=== PATIENT | female | born 1945 | race Caucasian/White ===

== ENCOUNTER → 2016-07-29 | Outpatient (CLI) | payer OTHER, MEDICARE ==
--- NOTE | 2016-08-18 14:19 | CODING QUERY MEDICAL NECESSITY ---
SUPPORTING DIAGNOSIS NEEDED Dr. Palmer, A supporting diagnosis is required for the test/procedure performed on this patient in order for us to be reimbursed by the patient's insurance. Please provide a supporting diagnosis for the following test/procedure listed below next to the test name along with your signature. *If there is no additional diagnosis for this patient that would support the following test/procedure please document that below next to the test/procedure. Test(s)/Procedure(s) that require a supporting diagnosis: * DXA BONE DENSITY, AXIAL DIAGNOSIS: DATE OF SERVICE: 07/29/16 Provider Signature: Date: Thank you [facility] Information Management Once completed, please kindly fax back to [phone] For questions please call [phone]
== END | disposition home or self-care (01) ==
LOC: MERGE 15:00 → C.MAMM 15:00
PROVIDERS: ATTEND Nurse Practitioner Family
DX: Z13.820 Encounter for screening for osteoporosis (principal)

== ENCOUNTER → 2017-02-26 | Outpatient (CLI) | payer OTHER, MEDICARE ==
[~2017-02-26] MED LIST: FENO54TA PO; HYDR12.55 PO; IBUP-103 PO; LOSA50TA6 PO; OMEG10007 PO; VNTHFA/IN INH
[2017-02-26 18:13] LABS: PROTHROMBIN TIME (PATIENT) 10.2 SECONDS (9.0-12.0)
[2017-02-26 18:23] LABS: URINE APPEARANCE CLOUDY (CLEAR); URINE COLOR DK YELLOW; URINE EPITHELIAL CELL AUTO >30 /lpf (0-5); URINE NITRITE NEG (NEG); URINE SPECIFIC GRAVITY 1.028 (1.000-1.030); UROBILINOGEN NEG (NEG); ZZUR CULT IF INDIC CLEAN CATCH YES
[2017-02-26 18:34] LABS: MANUAL MICROSCOPIC REQUIRED? NO; REVIEW REQ? YES; URINE BILIRUBIN NEG (NEG)
[2017-02-26 18:36] LABS: URINE MUCUS PRESENT (NONE PRSENT)
== END | disposition home or self-care (01) ==
LOC: C.LABMFLN 11:51
PROVIDERS: ATTEND Physician Assistant Medical
DX: Z01.812 Encounter for preprocedural laboratory examination (principal); M17.12 Unilateral primary osteoarthritis, left knee

== ENCOUNTER → 2017-03-25 | Outpatient (CLI) | payer OTHER, MEDICARE ==
[~2017-03-25] MED LIST changes: +GLC/500 PO
== END | disposition home or self-care (01) ==
LOC: C.LABMFLN 11:32
PROVIDERS: ATTEND Orthopaedic Surgery
DX: Z01.818 Encounter for other preprocedural examination (principal)

== ENCOUNTER 2017-04-10 05:56 | Inpatient (IN) | payer OTHER, MEDICARE ==
[2017-02-25 13:13] VITALS: BMI 36.0
--- NOTE | 2017-02-25 13:37 | PAT Medication Instructions ---
Service Date Feb 25, 2017. Current Home Medication List Albuterol Hfa (Ventolin Hfa), 2 PUFFS INH Q4H PRN for RN Fenofibrate (Tricor), 54 MG PO QAM Fish Oil (Douglas-3), 1 CAP PO QAM Hydrochlorothiazide (Hydrochlorothiazide), 1 TAB PO QAM Ibuprofen Tab (Advil), 400 MG PO PRN Losartan Potassium (Cozaar), 50 MG PO QAM Medication Instructions For Your Scheduled Surgery - Hold the following medications 2 weeks prior to surgery: Fish Oil (Douglas-3), 1 CAP PO QAM - Hold the following medications the morning of surgery: Hydrochlorothiazide (Hydrochlorothiazide), 1 TAB PO QAM Losartan Potassium (Cozaar), 50 MG PO QAM Fenofibrate (Tricor), 54 MG PO QAM Ibuprofen Tab (Advil), 400 MG PO PRN (otherwise okay to continue per surgeon) - Take the following medications the morning of surgery: Albuterol Hfa (Ventolin Hfa), 2 PUFFS INH Q4H PRN (use if needed; BRING TO HOSPITAL) - Take the following medications as scheduled the night before surgery: Albuterol Hfa (Ventolin Hfa), 2 PUFFS INH Q4H PRN If you have any questions please call us at [phone] or [phone] or [phone]
--- NOTE | 2017-02-25 14:18 | DIAGNOSTIC IMAGING REPORT ---
CHEST 2 VIEWS ROUTINE CLINICAL HISTORY: Preoperative evaluation. COMPARISON STUDY: No previous studies for comparison. FINDINGS: Note is made of cholecystectomy clips. There is no pneumothorax or pleural effusion. Pulmonary vascularity is normal. Linear bilateral opacities suggest atelectasis or scarring. There is mild cardiomegaly without evidence of pulmonary edema. IMPRESSION: 1. No acute cardiopulmonary findings. 2. Mild cardiomegaly. Electronically signed by: Zeus Simons M.D. 02/25/2017 2:16 PM Dictated Date/Time: 02/25/2017 2:15 PM
[2017-02-25 14:57] LABS: BASO % 0.4 %; BASO ABS # 0.04 K/uL (0-0.2); EOS % 1.4 %; EOS ABS # 0.16 K/uL (0-0.5); HEMOGLOBIN 15.3 g/dL (12.0-16.0); IG# 0.05 K/uL (0.00-0.02); LYMPH % 20.4 %; MEAN CELL VOLUME 96.8 fL (80-100); MEAN CORPUSCULAR HEMOGLOBIN 32.2 pg (25-34); MEAN CORPUSCULAR HGB CONC 33.3 g/dl (32-36); MEAN PLATELET VOLUME 11.8 fL (7.4-10.4); MONO % 7.2 %; MONO ABS # 0.81 K/uL (0.11-0.59); NEUT % 70.2 %; NEUT ABS # 7.89 K/uL (1.4-6.5); PLATELET COUNT 228 K/uL (130-400); RED CELL DISTRIBUTION WIDTH CV 13.5 % (11.5-14.5); RED CELL DISTRIBUTION WIDTH SD 47.8 fL (36.4-46.3); WHITE BLOOD COUNT 11.25 K/uL (4.8-10.8)
[2017-02-25 15:51] LABS: ALBUMIN 3.9 gm/dl (3.4-5.0); CALCIUM 9.2 mg/dl (8.5-10.1); CREATININE 0.7 mg/dl (0.60-1.20); POTASSIUM 3.8 mmol/L (3.5-5.1)
[2017-02-26 06:36] LABS: HEMOGLOBIN A1C 6.8 % (4.5-5.6)
--- NOTE | 2017-04-06 08:54 | History and Physical ---
History & Physical Date Apr 06, 2017. Chief Complaint Left knee pain History of Present Illness The patient is a 71 year old female with complaints of left knee pain for several years. She has tried conservative therapies with minimal relief. She would like to proceed with a Left total knee arthroplasty. Past Medical/Surgical History PMHx: hypertension, hypercholesterolemia, anxiety, shortness of breath, osteoarthritis , history of kidney stones PSHx: Cholecystectomy, breast reduction Additional History Hepatic Disease: No Endocrine Disorder: No Kidney Disease: No Hypertension: No Heart Disease: Yes Bleeding Tendencies: No Infectious Diseases: No Allergies Coded Allergies: Penicillins (Verified Allergy, Unknown, HIVES, 02/25/17) Home Medications Scheduled Fenofibrate (Tricor), 54 MG PO QAM Fish Oil (Ferndale-3), 1 CAP PO QAM Hydrochlorothiazide (Hydrochlorothiazide), 1 TAB PO QAM Ibuprofen Tab (Advil), 400 MG PO PRN Losartan Potassium (Cozaar), 50 MG PO QAM Metformin Hcl (Glucophage), 500 MG PO HS Scheduled PRN Albuterol Hfa (Ventolin Hfa), 2 PUFFS INH Q4H PRN for RN Physical Examination Skin: warm/dry, no rash Eyes: normal inspection, EOMI ENT: normal ENT inspection Head: normocephalic, atraumatic Neck: supple, no adenopathy Respiratory/Chest: lungs clear, normal breath sounds Cardiovascular: regular rate, rhythm, no murmur Abdomen / GI: normal bowel sounds, non tender Extremities: normal inspection, + pertinent finding (Medial joint line tenderness, ligaments are intact.) Neurologic/Psych: no motor/sensory deficits, alert, oriented x 3 Diagnosis Primary osteoarthritis of left knee Plan of Treatment Patient is scheduled for a left total knee arthroplasty. She has failed conservative therapy and would like to proceed with scheduled procedure. Risks and benefits to surgery were discussed with the patient. The patient understands the risks and would like to proceed. All questions were answered to their satisfaction.
[2017-04-10] VITALS (8 sets, daily range): BP systolic 129–175; BP diastolic 76–93; PULSE 70–90; TEMP 36.5–36.9; O2SAT 94–97; Ht 167.6 cm; Wt 102.6 kg
[~2017-04-10] VITALS: Ht 167.6 cm; Wt 102.6 kg
[~2017-04-10 05:56] MED LIST changes: +[UNRECOGNIZED DRUG - REMARK] SCH
[2017-04-10] MEDS ORDERED: CLINDAMYCIN 600 MG/54 ML D5W 54 ML IV SCH (06:00)
[2017-04-10] MEDS ORDERED: GABAPENTIN 300 MG CAP PO SCH ×2 (06:00)
[2017-04-10] MEDS ORDERED: ROPIVACAINE 5MG/ML 30 ML 150 MG, BUPIVACAINE 0.5% MPF INJ 30 ML, EpINEphrine HCL INJ 0.... INFIL SCH ×8 (06:00)
[2017-04-10] MEDS ORDERED: CLINDAMYCIN 600 MG/54 ML D5W IV SCH (06:00)
[2017-04-10] MEDS ORDERED: DEXAMETHASONE 4 MG TAB PO SCH ×2 (06:00)
[2017-04-10] MEDS ORDERED: LACTATED RINGER'S 1000ML IV SCH (06:00)
[2017-04-10] MEDS ORDERED: CeleBREX 200 MG CAP PO SCH ×2 (06:00)
[2017-04-10] MEDS ORDERED: METOCLOPRAMIDE HCL 10 MG TAB PO SCH ×2 (06:00)
[2017-04-10] MEDS ORDERED: ACETAMINOPHEN 500 MG TAB PO SCH ×3 (06:00→14:00)
[2017-04-10] MEDS ORDERED: FAMOTIDINE 20 MG TAB PO SCH ×2 (06:00)
[2017-04-10] MEDS ORDERED: LACTATED RINGER'S 1000ML 500 ML IV SCH (06:00)
[2017-04-10] MEDS ORDERED: TRANEXAMIC ACID INJ 1,000 MG in SYRINGE 0 ML IV SCH (06:00)
[2017-04-10] MEDS ORDERED: OXYCODONE HCL 10 MG TABCR (OXYCONTIN) PO SCH ×2 (06:00)
[2017-04-10] MEDS ORDERED: LACTATED RINGER'S 1000ML 1,000 ML IV SCH (06:00)
[2017-04-10] MEDS: TRANEXAMIC ACID INJ 1,000 MG in SYRINGE 0 ML IV SCH ×2 (06:30→08:55)
[2017-04-10] MEDS ORDERED: ROPIVACAINE 0.5% 5 MG/ML 30 ML VIAL ONE (06:33)
[2017-04-10] MEDS ORDERED: BUPIVACAINE 0.5 % 5 MG/1 ML PF 10ML VIAL ONE (06:33)
[2017-04-10] MEDS ORDERED: MIDAZOLAM HCL 1 MG/ML 2ML VIAL ONE ×2 (07:22→07:23)
[2017-04-10] MEDS ORDERED: FENTANYL CITRATE INJ 50 MCG/1 ML 2 ML VIAL ONE (07:22)
[2017-04-10] MEDS ORDERED: PROPOFOL IV EMULSION 10 MG/ML 20 ML VIAL IV ONE (07:23)
[2017-04-10] MEDS ORDERED: BACITRACIN 50000 UNIT VIAL ONE (09:23)
[2017-04-10] MEDS ORDERED: POVIDONE-IODINE OP SOLN 30 ML BTL ONE (09:23)
--- NOTE | 2017-04-10 09:23 | History & Physical Bridge Note ---
H&P Re-Evaluation Bridge Note: I have examined the patient, reviewed the History & Physical and in the interval since the performance of the History & Physical I have noted the following changes of clinical significance: No changes noted
[2017-04-10] MEDS ORDERED: PHENYLEPHRINE 100MCG/ML 5ML SYR IV PRN (09:30)
[2017-04-10] MEDS ORDERED: ONDANSETRON INJ 2 MG/ML 2 ML VIAL IV PRN ×2 (09:30→11:45)
[2017-04-10] MEDS ORDERED: ATROPINE SULFATE 0.1 MG/ML 5ML SYR IV PRN (09:30)
[2017-04-10] MEDS ORDERED: EpHEDrine SULFATE INJ 50 MG/ML AMP IV PRN (09:30)
[2017-04-10] MEDS ORDERED: HYDROmorphone INJ 1 MG/ML SYR IV PRN (09:30)
[2017-04-10] MEDS ORDERED: ROPIVACAINE 5MG/ML 30 ML 150 MG, BUPIVACAINE 0.5% MPF INJ 30 ML, EpINEphrine HCL INJ 0.... INFIL STA ×8 (09:41)
[2017-04-10] MEDS ORDERED: VANCOMYCIN INJ 1,000 MG in SODIUM CHLORIDE 0.9% 250ML 250 ML IV ONE (10:15)
[2017-04-10] MEDS ORDERED: NURSING VERBAL MED ORDER ONE ×3 (10:15→21:45)
--- NOTE | 2017-04-10 11:15 | [facility] Operative Report ---
Operative Report Operative Date Apr 10, 2017. Pre-Operative Diagnosis Primary Osteoarthritis Left Knee Post-Operative Diagnosis Primary Osteoarthritis Left Knee Procedure(s) Performed Left Total Knee Arthroplasty Surgeon Dr. Macedo Sand Filler Surgeon(s) TEJINDER Oneil Estimated Blood Loss 20 ml Findings As above Specimens A. Left Knee Bone and Tissue Drains 2 Hemovac Anesthesia spinal and adductor canal block Complication(s) None Disposition Recovery Room / PACU Indications The patient is a 71-year-old female long-standing osteoarthritis the left knee. She has failed conservative measures including injection anti-inflammatories and rehabilitation. She is [id number] particularly medial compartment was significant osteophyte formation all 3 compartments. She wishes to proceed with total knee arthroplasty Description of Procedure Risks benefits and alternatives of surgery including but not limited to infection, DVT, pain, stiffness, need for surgery, damage to blood vessels, damage to nerves or risks of anesthesia were discussed with the patient and they wished to proceed. The patient was identified and the laterality was confirmed and marked. They received a preoperative antibiotic as well as a spinal anesthetic and an abductor canal block. A well-padded tourniquet was applied and then the limb was prepped and draped in standard manner with ChloraPrep. The limb was exsanguinated and the tourniquet was inflated. I made a standard anterior incision. I sharply incised the skin then utilized Bovie electrocautery as well as the aqua mantis to achieve hemostasis. I made a medial parapatellar arthrotomy and mobilized the patella laterally. I then excised the anterior horns of the medial and lateral meniscus as well as the infrapatellar fat pad. I elevated a portion of the MCL off of the tibia. I then pinned into place a patient-matched distal femoral cutting guide and made my distal femoral resection. I then pinned into place the 5 in 1 femoral cutting guide. I made my anterior, posterior and chamfer cuts. I then excised the cruciates and the remaining portions of the menisci. I then pinned into place a patient- matched tibial cutting guide and made my tibial resection. I then pinned into place the tibial plate a utilizing alignment yvonne to confirm rotation. I then cut for the post. Utilizing a lamina electrician radio and I then removed posterior osteophytes off the femur. I then placed a trial femur into position and cut for the trochlear component. I then sequentially trialed to size the polyethylene until there was good soft tissue balancing and range of motion. I then prepared the patella with a freehand cut utilizing sagittal saw. I sized and drilled for the patella. There was good tracking to the patella no lateral release was needed. All the trial components were removed. The deep tissues were anesthetized with an ortho mix solution. Then with Simplex HV with gentamicin cement, I cemented my definitive components. Definitive components, Zamora and Nephew Journey 2: Femur 6 Tibia 4 Poly 9 Patella 35 oval A betadine soak was performed. A deep drain was placed. The arthrotomy was closed with interrupted #1 Vicryl suture subcutaneous tissue was closed with interrupted 2-0 Vicryl suture. The skin was closed with with jamey. A Silverlon was placed. Sterile dressings were applied. All needle and sponge counts were correct at the end of the procedure patient was transferred to the PACU in stable condition without apparent complication. The PA-C was necessary for assistance with procedure for assistance in positioning, prepping, draping, retraction and closure. I attest to the content of the Intraoperative Record and any orders documented therein. Any exceptions are noted below.
[2017-04-10] MEDS ORDERED: ALUMINUM/MAGNESIUM/SIMETH (MAALOX MAX) 30 ML UDC PO PRN (11:45)
[2017-04-10] MEDS ORDERED: BISACODYL 10 MG SUPP PR PRN (11:45)
[2017-04-10] MEDS ORDERED: VANCOMYCIN CONSULT ACTIVE PRN (11:45)
[2017-04-10] MEDS ORDERED: ALBUTEROL HFA 8 GM INHALER INH PRN (11:45)
[2017-04-10] MEDS ORDERED: MoRPHine SULFATE 2 MG/ML CARP IV PRN (11:45)
[2017-04-10] MEDS ORDERED: SOD PHOSPHATE/SOD BIPHOSPHATE ENEMA 132 ML BTL PR PRN (11:45)
[2017-04-10] MEDS ORDERED: ZOLPIDEM TARTRATE 5 MG TAB PO PRN (11:45)
[2017-04-10] MEDS ORDERED: OXYCODONE HCL IR 5 MG TAB (IMMEDIATE RELEASE) PO PRN (11:45)
[2017-04-10] MEDS ORDERED: MAGNESIUM HYDROXIDE SUSP 30 ML UDC PO PRN (11:45)
--- NOTE | 2017-04-10 12:37 | Anesthesiology Progress Note ---
Anesthesia Post Op Note Date & Time Apr 10, 2017 at 12:37 Vital Signs Pain Intensity: 0 Vital Signs Past 12 Hours Date Time Temp Pulse Resp B/P (MAP) Pulse Ox O2 Delivery O2 Flow Rate FiO2 04/10/17 12:22 37.3 82 16 144/82 96 Nasal Cannula 2 04/10/17 12:11 147/82 04/10/17 12:07 83 12 04/10/17 12:07 83 12 96 04/10/17 12:06 144/81 04/10/17 12:02 77 14 99 04/10/17 12:02 77 14 04/10/17 12:01 136/80 04/10/17 12:00 80 10 99 04/10/17 12:00 81 10 04/10/17 11:56 142/81 04/10/17 11:55 82 9 100 04/10/17 11:55 82 9 04/10/17 11:51 145/79 04/10/17 11:50 88 19 04/10/17 11:50 88 19 100 04/10/17 11:46 126/80 04/10/17 11:45 91 9 100 04/10/17 11:45 89 9 04/10/17 11:41 127/75 04/10/17 11:40 37.3 94 18 127/75 (100) 99 Oxymask 10 04/10/17 06:24 36.9 90 18 175/93 96 Room Air Notes Mental Status: alert / awake / arousable, participated in evaluation Pt Amnestic to Procedure: Yes Nausea / Vomiting: adequately controlled Pain: adequately controlled Airway Patency, RR, SpO2: stable & adequate BP & HR: stable & adequate Hydration State: stable & adequate Anesthetic Complications: no major complications apparent
--- NOTE | 2017-04-10 12:44 | DIAGNOSTIC IMAGING REPORT ---
TWO VIEWS LEFT KNEE CLINICAL HISTORY: Postoperative examination. FINDINGS: AP and crosstable lateral portable views of the left knee are obtained. A left knee arthroplasty is in near anatomic alignment. There has been undersurface remodeling of the patella. No acute fracture is seen. There are expected postoperative changes around the knee including skin clips, a surgical drain, soft tissue edema, and subcutaneous gas. IMPRESSION: Expected postoperative changes status post left knee arthroplasty. No acute fracture is seen. Electronically signed by: Mg Leigh M.D. 04/10/2017 12:42 PM Dictated Date/Time: 04/10/2017 12:42 PM
[2017-04-10] MEDS: TRICOR~ORDER AWAITING ACTION SCH ×2 (15:57→23:38)
[2017-04-10] MEDS: FERROUS GLUCONATE 324 MG TAB PO SCH (17:52)
[2017-04-10] MEDS: SODIUM CHLORIDE 0.9% 1000ML 1,000 ML IV SCH (18:28)
[2017-04-10] MEDS: SENNA 8.6 MG TAB PO SCH (21:00)
[2017-04-10] MEDS: ASPIRIN 81 MG ECTAB PO SCH (21:07)
[2017-04-10] MEDS: CeleBREX 200 MG CAP PO SCH (21:07)
[2017-04-10] MEDS: DOCUSATE SODIUM 100 MG CAP PO SCH (21:08)
[2017-04-10] MEDS ORDERED: VANCOMYCIN INJ 1,500 MG in SODIUM CHLORIDE 0.9% 500ML 500 ML IV ONE (22:00)
[2017-04-10] MEDS ORDERED: VANCOMYCIN INJ 1,000 MG in SODIUM CHLORIDE 0.9% 250ML 250 ML IV SCH (22:00)
[2017-04-10] MEDS: ACETAMINOPHEN 500 MG TAB PO SCH (23:38)
[2017-04-11 03:30] VITALS: BP 112/63; PULSE 72; TEMP 36.6; O2SAT 97
[2017-04-11] MEDS: SODIUM CHLORIDE 0.9% 1000ML 1,000 ML IV SCH (05:36)
[2017-04-11 06:11] LABS: HEMATOCRIT 34.7 % (37-47); HEMOGLOBIN 11.6 g/dL (12.0-16.0); MEAN CELL VOLUME 94.8 fL (80-100); MEAN CORPUSCULAR HEMOGLOBIN 31.7 pg (25-34); MEAN CORPUSCULAR HGB CONC 33.4 g/dl (32-36); MEAN PLATELET VOLUME 12.2 fL (7.4-10.4); PLATELET COUNT 170 K/uL (130-400); RED CELL DISTRIBUTION WIDTH SD 45.1 fL (36.4-46.3); WHITE BLOOD COUNT 14.07 K/uL (4.8-10.8)
[2017-04-11 06:20] LABS: INR 1.1 (0.9-1.1)
[2017-04-11 06:51] LABS: CREATININE 0.88 mg/dl (0.60-1.20); POTASSIUM 4.2 mmol/L (3.5-5.1)
[2017-04-11] MEDS: ACETAMINOPHEN 500 MG TAB PO SCH ×3 (07:33→23:45)
[2017-04-11] MEDS: TRICOR~ORDER AWAITING ACTION SCH ×3 (07:33→23:45)
[2017-04-11 08:14] VITALS: BP 127/72; PULSE 64; TEMP 36.6; O2SAT 98
[2017-04-11] MEDS: CeleBREX 200 MG CAP PO SCH ×2 (08:29→21:18)
[2017-04-11] MEDS: DOCUSATE SODIUM 100 MG CAP PO SCH ×2 (08:29→21:18)
[2017-04-11] MEDS: FERROUS GLUCONATE 324 MG TAB PO SCH ×3 (08:29→18:22)
[2017-04-11] MEDS: ASPIRIN 81 MG ECTAB PO SCH ×2 (08:29→21:18)
[2017-04-11] MEDS: LOSARTAN POTASSIUM 50 MG TAB PO SCH (08:29)
[2017-04-11] MEDS: HYDROCHLOROTHIAZIDE 25 MG TAB PO SCH (08:29)
[2017-04-11] MEDS: MULTIVITAMIN TAB PO SCH (08:29)
--- NOTE | 2017-04-11 09:38 | Orthopedic Progress Note ---
Orthopedic Progress Note Date of Service Apr 11, 2017. Subjective Post OP Day: 1 Reports: feeling well, pain controlled w PO medications, Denies: chest pain, SOB , nausea / vomiting, light headedness, calf pain Objective calves soft nontender, N/V intact, capillary refill less than 2 sec., dressing C /D/I, A&O x3, toes mobile, hemovac drainage Date Time Temp Pulse Resp B/P (MAP) Pulse Ox O2 Delivery O2 Flow Rate FiO2 04/11/17 08:14 36.6 64 17 127/72 (90) 98 Room Air 04/11/17 07:30 Room Air 04/11/17 03:30 36.6 72 18 112/63 (79) 97 Room Air 04/10/17 23:45 Room Air 04/10/17 23:40 36.5 72 18 134/76 (95) 95 Room Air 04/10/17 21:25 36.5 70 16 132/77 (95) 97 Nasal Cannula 2.0 04/10/17 16:36 36.7 76 16 129/76 (93) 94 Nasal Cannula 2.0 04/10/17 15:45 Nasal Cannula 2.0 04/10/17 15:00 36.6 77 17 137/76 (96) 96 Nasal Cannula 2.0 04/10/17 14:05 82 16 138/83 (101) 96 Nasal Cannula 2.0 04/10/17 13:30 36.5 75 16 134/76 (95) 96 Nasal Cannula 2.0 04/10/17 13:00 Nasal Cannula 2.0 04/10/17 13:00 36.7 82 16 142/77 (98) 96 Nasal Cannula 2.0 04/10/17 12:37 36.7 83 16 141/77 (106) 96 Nasal Cannula 2 04/10/17 12:22 37.3 82 16 144/82 96 Nasal Cannula 2 04/10/17 12:11 147/82 04/10/17 12:07 83 12 04/10/17 12:07 83 12 96 04/10/17 12:06 144/81 04/10/17 12:02 77 14 99 04/10/17 12:02 77 14 04/10/17 12:01 136/80 04/10/17 12:00 80 10 99 1/26/18 12:00 81 10 04/10/17 11:56 142/81 04/10/17 11:55 82 9 100 04/10/17 11:55 82 9 04/10/17 11:51 145/79 04/10/17 11:50 88 19 04/10/17 11:50 88 19 100 04/10/17 11:46 126/80 04/10/17 11:45 91 9 100 04/10/17 11:45 89 9 04/10/17 11:41 127/75 04/10/17 11:40 37.3 94 18 127/75 (100) 99 Oxymask 10 Laboratory Results 24 Hours: Test 04/11/17 05:28 Hematocrit 34.7 % Hemoglobin 11.6 g/dL Prothromb Time International Ratio 1.1 Prothrombin Time 11.4 SECONDS Assessment & Plan Assessment: s/p Left TKA POD #1 Plan: Plan for HH on thursday if pain controlled and doing well Inhouse Planning Pain Management: PO Tylenol, Oxy IR DVT Prophylaxis: TEDs, SCDs, ASA Discharge Planning Discharge Planning: home with home health Pain Management: PO Tylenol, Oxy IR DVT Prophylaxis: TEDs, ASA Therapy: Physical Therapy
[2017-04-11 11:00] VITALS: BP 104/63; PULSE 71; TEMP 36.5; O2SAT 97
[2017-04-11 15:39] VITALS: BP 119/74; PULSE 72; TEMP 36.6; O2SAT 96
[2017-04-11] MEDS ORDERED: METFORMIN HCL 500 MG TAB PO SCH (17:45)
--- NOTE | 2017-04-11 18:23 | Discharge Instructions ---
Discharge Instructions Date of Service Apr 11, 2017. Admission Reason for Admission: Left Knee Osteoarthritis Discharge Discharge Diagnosis / Problem: left TKA Discharge Goals Goal(s): Decrease discomfort, Improve function, Increase independence, Therapeutic intervention Activity Recommendations Activity Limitations: per Instructions/Follow-up section . Instructions / Follow-Up Instructions / Follow-Up ACTIVITY RECOMMENDATIONS: SELF CARE INSTRUCTIONS AFTER TOTAL KNEE REPLACEMENT A. You may need to continue a physical therapy program after discharge from the hospital. There are several options available to you. Your doctor will assist you in selecting the best one for you. 1. An out-patient facility 2 to 3 times a week for therapy or home therapy. 2. Continue working on all exercises taught to you in the hospital. Your goals should be to increase bending of your knee to 90 degrees and beyond and to fully straighten your knee. B. You may progress at your own pace from walking with a walker or crutches to a cane; then to no assistive devices. C. Make walking a part of your daily routine. Be up as much as comfortable with rest periods throughout the day. Rest with leg elevation is very important. Use the ice wrap frequently for the first 3-4 weeks. D. There are no restrictions on activities. You may ride in a car, shop, participate in value analysis coordinator and all social activities. E. Wear the long elastic stockings (NIGHAT hose) 20 hours a day for 2 weeks after surgery. They can be removed several times a day for laundering and for a bath. F. You may shower, no tub baths until cleared by your doctor. SPECIAL CARE INSTRUCTIONS: VERY IMPORTANT TO READ AND REVIEW A. There are a few signs you need to watch for after you are home. Call [facility] if you notice any of the followin. Increased severe knee pain. Some pain is expected especially when you exercise. 2. Increased swelling in your leg or knee; pain or swelling of the calf muscle in either lower leg. 3. Any fluid drainage from the incision. 4. Shortness of breath or chest pain. B. Please call [facility] at if you have any concerns or questions about your operation or recovery. The doctor or his nurse will return your call promptly. C. You must take antibiotics before dental work, bladder, bowel or other surgery. Your doctor will provide you with a permanent care to carry describing this precaution. IMPORTANT: * REMEMBER TO TAKE ASPIRIN, 81 MG, TWICE DAILY FOR 4 WEEKS UNLESS OTHERWISE DIRECTED. THIS IS YOUR BLOOD THINNER. * HIGH RISK PATIENTS MAY BE PRESCRIBED A STRONGER BLOOD THINNER. THIS WILL BE PROVIDED AT DISCHARGE. * CALL IF INCREASED PAIN, REDNESS, DRAINAGE OR FEVER GREATER THAT 101. * WEAR NIGHAT HOSE 20 HOURS PER DAY FOR 2 WEEKS. * YOU MAY HAVE A LARGE BAND-AID LIKE DRESSING (SILVERON). THIS WILL REMAIN ON YOUR INCISION FOR 7 DAYS, THEN CAN BE REMOVED. IF INCISION IS LEAKING THROUGH DRESSING, CALL THE OFFICE . FOLLOW UP VISIT: If appointment is not already scheduled: Please call [facility] to make a follow-up appointment for 2 weeks after your surgery at . Current Hospital Diet Patient's current hospital diet: Regular Diet Discharge Diet Recommended Diet: Regular Diet Procedures Procedures Performed: Left Total Knee Arthroplasty Pending Studies Studies pending at discharge: no Laboratory Results Hemoglobin A1c Test 02/25/17 13:44 Range/Units Estimated Average Glucose 148 mg/dl Hemoglobin A1c 6.8 H 4.5-5.6 % Medical Emergencies . Who to Call and When: Medical Emergencies: If at any time you feel your situation is an emergency, please call [phone] immediately. . Non-Emergent Contact Non-Emergency issues call your: Primary Care Provider . "Provider Documentation" section prepared by Kristina Wolf. . VTE Core Measure Inpt VTE Proph given/why not?: Other Anticoagulation (ASA), T.E.D. Stockings, SCD's [place] Drug Monitoring Program Search Results: patient reviewed within database
[2017-04-11] MEDS: SENNA 8.6 MG TAB PO SCH (21:18)
[2017-04-11 23:18] VITALS: BP 145/78; PULSE 76; TEMP 36.6; O2SAT 96
[2017-04-12 06:00] VITALS: BP 156/88; PULSE 77; TEMP 36.3; O2SAT 97
[2017-04-12] MEDS: ASPIRIN 81 MG ECTAB PO SCH (07:39)
[2017-04-12] MEDS: MULTIVITAMIN TAB PO SCH (07:40)
[2017-04-12] MEDS: DOCUSATE SODIUM 100 MG CAP PO SCH (07:40)
[2017-04-12] MEDS: FERROUS GLUCONATE 324 MG TAB PO SCH (07:40)
[2017-04-12] MEDS: ACETAMINOPHEN 500 MG TAB PO SCH (07:41)
[2017-04-12] MEDS: LOSARTAN POTASSIUM 50 MG TAB PO SCH (07:41)
[2017-04-12] MEDS: HYDROCHLOROTHIAZIDE 25 MG TAB PO SCH (07:41)
[2017-04-12] MEDS: CeleBREX 200 MG CAP PO SCH (07:42)
[2017-04-12] MEDS: TRICOR~ORDER AWAITING ACTION SCH (07:42)
--- NOTE | 2017-04-12 08:25 | Orthopedic Progress Note ---
Orthopedic Progress Note Date of Service Apr 12, 2017. Subjective Post OP Day: 2 Reports: feeling well, pain controlled w PO medications, Denies: chest pain, SOB , nausea / vomiting, light headedness, calf pain Objective calves soft nontender, N/V intact, capillary refill less than 2 sec., dressing C /D/I, A&O x3, toes mobile Date Time Temp Pulse Resp B/P (MAP) Pulse Ox O2 Delivery O2 Flow Rate FiO2 04/12/17 06:00 36.3 77 16 156/88 (110) 97 Room Air 04/11/17 23:50 Room Air 04/11/17 23:18 36.6 76 18 145/78 (100) 96 Room Air 04/11/17 15:39 36.6 72 16 119/74 (89) 96 Room Air 04/11/17 15:30 Room Air 04/11/17 11:00 36.5 71 17 104/63 (77) 97 Room Air Assessment & Plan Assessment: s/p Left TKA POD #2 Plan: Plan for discharge today with HH Inhouse Planning Pain Management: PO Tylenol, Oxy IR DVT Prophylaxis: NIGHATs, SCDs, ASA Discharge Planning Discharge Planning: home with home health Pain Management: PO Tylenol, Oxy IR DVT Prophylaxis: TEDs, ASA Therapy: Physical Therapy
[2017-04-12] MEDS ORDERED: RXC5 PO (08:28)
[2017-04-12] MEDS ORDERED: FRRG PO (08:28)
[2017-04-12] MEDS ORDERED: ONDA8TAB6 PO (08:28)
[2017-04-12] MEDS ORDERED: ACET-24 PO (08:28)
[2017-04-12] MEDS ORDERED: CLB200 PO (08:28)
[2017-04-12] MEDS ORDERED: ASPEC81 PO (08:28)
[2017-04-12 08:58] VITALS: BP 156/88; PULSE 77; TEMP 36.3; O2SAT 97
--- NOTE | 2017-04-14 13:15 | Discharge Summary ---
Orthopedic Discharge Summary Admission Date/Reason Apr 10, 2017 at 08:48 Left Knee Osteoarthritis. Discharge Date/Disposition Apr 12, 2017 Home with services Diagnosis Principal Diagnosis: S/P Left total knee arthroplasty Medication Reconciliation as per discharge instructions Admission Physical Exam As per Admitting History & Physical. Hospital Course POD#1 patient was feeling well. Pain was well controlled with PO medications. She would like to go home with home health and this was to be arranged for Thursday. Her dressing was clean dry and intact. POD#2 patient was feeling well. Dressing was clean, dry and intact. She was to be discharged later after morning PT home with home health. Discharge Instructions Please refer to the electronic Patient Visit Report (Discharge Instructions) for additional information.
== END 2017-04-12 11:40 | disposition home health service (06) | DRG 470 ==
LOC: C.ACU 05:56 → UNDOADMIN 08:48 → C.3E 08:48 → ENRESERV 12:30
PROVIDERS: ADMIT Orthopaedic Surgery; ATTEND Orthopaedic Surgery
PROC: 0SRD0J9 Replacement of Left Knee Joint with Synthetic Substitute, Cemented, Open Approach (ICD-10-PCS; principal; 2017-04-10 09:00)
DX: M17.12 Unilateral primary osteoarthritis, left knee (principal); I10 Essential (primary) hypertension; E78.00 Pure hypercholesterolemia, unspecified; F41.9 Anxiety disorder, unspecified; Z87.442 Personal history of urinary calculi; Z90.49 Acquired absence of other specified parts of digestive tract; Z88.0 Allergy status to penicillin

== ENCOUNTER 2021-07-01 05:12 | Observation (INO) ==
--- NOTE | 2021-06-13 09:41 | PAT Medication Instructions ---
Medication Instructions Date of Service June 13, 2021 Home Medications acetaminophen 325 mg tablet (Tylenol) 325 mg PO QID PRN diphenhydramine HCl 25 mg capsule (Benadryl) 25 mg PO Q6H PRN fenofibrate 54 mg tablet 54 mg PO QAM gabapentin 100 mg tablet 100 mg PO QAM gabapentin 100 mg tablet 300 mg PO HS hydrochlorothiazide 50 mg tablet 50 mg PO QAM losartan 50 mg tablet 50 mg PO QAM albuterol sulfate 90 mcg/actuation aerosol inhaler 1 inh INHALATION Q4H PRN cyanocobalamin (vitamin B-12) 100 mcg tablet (Vitamin B-12) 100 mcg PO QAM empagliflozin 10 mg tablet (Jardiance) 10 mg PO QAM gabapentin 100 mg tablet 100 mg PO QPM lorazepam 0.5 mg tablet 0.5 mg PO DAILY PRN metformin 1,000 mg tablet 1,000 mg PO BID STOP taking 48 hours before surgery fenofibrate 54 mg tablet 54 mg PO QAM DO NOT take the morning of surgery diphenhydramine HCl 25 mg capsule (Benadryl) 25 mg PO Q6H PRN hydrochlorothiazide 50 mg tablet 50 mg PO QAM losartan 50 mg tablet 50 mg PO QAM cyanocobalamin (vitamin B-12) 100 mcg tablet (Vitamin B-12) 100 mcg PO QAM empagliflozin 10 mg tablet (Jardiance) 10 mg PO QAM metformin 1,000 mg tablet 1,000 mg PO BID Take morning of surgery With a small sip of water, OTHERWISE NOTHING TO EAT OR DRINK AFTER MIDNIGHT: acetaminophen 325 mg tablet (Tylenol) 325 mg PO QID PRN (okay to take up to 4 hours prior to surgery if needed) gabapentin 100 mg tablet 100 mg PO QAM albuterol sulfate 90 mcg/actuation aerosol inhaler 1 inh INHALATION Q4H PRN (use if needed; please bring with you to hospital day of surgery if possible) lorazepam 0.5 mg tablet 0.5 mg PO DAILY PRN (if needed) Take evening before surgery acetaminophen 325 mg tablet (Tylenol) 325 mg PO QID PRN (if needed) diphenhydramine HCl 25 mg capsule (Benadryl) 25 mg PO Q6H PRN (if needed) gabapentin 100 mg tablet 300 mg PO HS albuterol sulfate 90 mcg/actuation aerosol inhaler 1 inh INHALATION Q4H PRN (if needed) gabapentin 100 mg tablet 100 mg PO QPM lorazepam 0.5 mg tablet 0.5 mg PO DAILY PRN (if needed) metformin 1,000 mg tablet 1,000 mg PO BID Other Notes If you have any questions please call us at [phone] or [phone] or [phone] or [phone]
--- NOTE | 2021-06-14 14:27 | Anesthesiology Consultation ---
Date of Service June 14, 2021 Assessment & Plan (1) Encounter for pre-operative examination: - Unable to void at [facility]: Awaiting preop UA (taking to [facility] per [facility] tech). Patient otherwise acceptable risk for surgery. - COVID screening: Per assessment on 06/12: No known COVID-19 positive contacts or current COVID-19 related symptoms. Travel screen negative. Surgeon arranging preop COVID testing. Awaiting results. - S/P Left TKA (04/10/17): SAB at L4-L5 + PNB at [facility]. No issues per anesthesia progress note. - PCP office visit (01/18/21): Patient seen by PCP for this visit prior to right TKA as she was originally scheduled to be done 02/2021. At visit, PCP states: "Her glucose closely prior to procedure to determine need for insulin at that time.. Per [facility] guidelines, patient may proceed with aforementioned surgery without additional preoperative testing.. Patient with slight increase in hemog lobin A1c from 8-8.6 in the past 3 months.. Will hold adjustments prior to surgery, the likely will need increase in medications." - Check BSG AM DOS Chart Review Chart Review: Patient seen in Pre Admission Testing Teaching & Discussion Pre-Anesthesia Teaching/Discussion Notes: Instructed NPO after midnight before surgery,except medications with 15 cc of water. Medication instructions provided according to the [facility] guidelines. History Surgery Operation Date: 07/01/21 12:15 Proposed Procedures p Right Total Knee Arthroplasty - Pradeep Wright MD Height/Weight Height: 5 ft 6 in Weight: 97.7 kg Allergies Allergy/AdvReac Type Severity Reaction Status Date / Time Penicillins Allergy Intermediate Hives Verified 06/12/21 16:12 Medications Home Medications Medication Instructions Recorded Confirmed Last Taken acetaminophen 325 mg tablet 325 mg PO QID PRN 01/16/21 06/12/21 Unknown (Tylenol) diphenhydramine HCl 25 mg capsule 25 mg PO Q6H PRN 01/16/21 06/12/21 Unknown (Benadryl) fenofibrate 54 mg tablet 54 mg PO QAM 01/16/21 06/12/21 Unknown gabapentin 100 mg tablet 100 mg PO QAM 01/16/21 06/12/21 Unknown gabapentin 100 mg tablet 300 mg PO HS 01/16/21 06/12/21 Unknown hydrochlorothiazide 50 mg tablet 50 mg PO QAM 01/16/21 06/12/21 Unknown losartan 50 mg tablet 50 mg PO QAM 01/16/21 06/12/21 Unknown albuterol sulfate 90 mcg/actuation 1 inh INHALATION Q4H PRN 06/12/21 06/12/21 Unknown aerosol inhaler cyanocobalamin (vitamin B-12) 100 100 mcg PO QAM 06/12/21 06/12/21 Unknown mcg tablet (Vitamin B-12) empagliflozin 10 mg tablet 10 mg PO QAM 06/12/21 06/12/21 Unknown (Jardiance) gabapentin 100 mg tablet 100 mg PO QPM 06/12/21 06/12/21 Unknown lorazepam 0.5 mg tablet 0.5 mg PO DAILY PRN 06/12/21 06/12/21 Unknown metformin 1,000 mg tablet 1,000 mg PO BID 06/12/21 06/12/21 Unknown Past Medical History Medical History DM type 2 (diabetes mellitus, type 2) NIDDM History of kidney stones HLD (hyperlipidemia) HTN (hypertension) Neuropathy Obesity Osteoarthritis Urinary incontinence Past Family History Family History Sister PONV (postoperative nausea and vomiting) Past Surgical History Surgical History History of bilateral breast reduction surgery History of cholecystectomy History of D&C History of left knee replacement Left TKA (04/10/17): SAB at L4-L5 + PNB at [facility]. No issues per anesthesia progress note. Past Anesthesia History No Hx of Anesthesia Complications and No Family Hx of Anesthesia Complications History of PONV No Hx of PONV and Hx of Motion Sickness Social History Smoking Status: Never smoker Do You Dip or Chew Tobacco: No Hx Alcohol Use: Yes alcohol intake frequency: a few times a month Hx Substance Use: No substance use type: does not use Review of Systems Patient denies chest pain, shortness of breath, dyspnea on exertion, fever, chills, cough, wheezing, palpitations. Physical Exam Vital Signs VITALS BP 126/79 P 93 TEMP 98.3 SP02 96%RA RESP 16 PHYSICAL Full cervical extension range of motion. Full TMJ range of motion. TMD 4 finger breaths Mallampati Score 3 Dentition: intact Lungs: clear throughout to auscultation Cardiac: regular rate and rhythm, no murmurs noted Spine: normal Carotid arteries: negative bruit Extremities: no edema Lab Results Anesthesia Preop Results Results Anesthesia Widget: WBC 5.20 K/uL (4.8-10.8) 06/14/21 Hgb 13.1 g/dL (12.0-16.0) 06/14/21 Hct 38.9 % (37-47) 06/14/21 Plt 171 K/uL (130-400) 06/14/21 Na 142 mmol/L (136-145) 06/14/21 K 3.8 mmol/L (3.5-5.1) 06/14/21 Cl 103 mmol/L (98-107) 06/14/21 CO2 29 mmol/L (21-32) 06/14/21 BUN 25 mg/dl (6-23) H 06/14/21 Creat 0.76 mg/dl (0.6-1.2) 06/14/21 Glucose Level 166 mg/dl (70-99(Fasting)) H 06/14/21 PT 11.3 Seconds (9.0-12.0) 06/14/21 PTT 29.6 Seconds (21.0-31.0) 06/14/21 INR 1.1 (0.9-1.1) 06/14/21 HA1c 6.7 % (4.5-5.6) H 06/14/21 Blood Type A Positive 06/14/21 Antibody Screen NEGATIVE 06/14/21 Testing Electrocardiogram Date: 01/18/21 Findings: + NSR @ (89) Chest X-Ray Date: 06/14/21 FINDINGS: No pneumothorax or pleural effusion is present. Mild cardiomegaly is unchanged. No evidence for pulmonary edema. Linear opacity within the anterior segment of the right upper lobe is unchanged and reflects scarring. Linear left basilar opacity is unchanged. This represents scarring or atelectasis. Appearance of the chest is unchanged. Mild compression deformity at the thoracolumbar junction is chronic. IMPRESSION: No acute cardiopulmonary findings. No change in appearance of the chest.
--- NOTE | 2021-06-30 20:04 | History & Physical Report ---
Date of Service June 30, 2021 Assessment & Plan (1) Primary osteoarthritis of right knee: Plan: Treatment options discussed with the patient. She has failed conservative measures and would like to proceed with surgical intervention. Risks, benefits and alternatives to surgery including but not limited to infection, DVT, pain, stiffness, need for revision surgery, damage to blood vessels, damage to nerves, PE, , were discussed with the patient and they wish to proceed. Plan on right total knee arthroplasty scheduled fro 07/01/21 at [facility] with Dr. Wright. Will plan on home health PT post op. Will plan on aspirin 81mg twice daily post op for DVT prophylaxis. All questions answered. She will follow up post op. History of Present Illness Chief Complaint: Right knee pain Primary Care Provider: DG Aviles 75 year old female with PMHx significant for HTN, high cholesterol, DM2 who presents with longstanding right knee pain. She has pain interfering with her daily activities. She has failed conservative measures including injections, anti-inflammatories, therapy. She has previous left knee replacement and has done well. She would like to proceed with knee replacement. Patient denies headaches, sweats, fevers, chills, double vision, blurred vision, cough, sore throat, dysphagia, chest pain, sob, wheezing, n/v/d/c, numbness, tingling, fatigue, urinary symptoms, mood disorders. ROS positive for right knee pain and stiffness. Allergies Allergy/AdvReac Type Severity Reaction Status Date / Time Penicillins Allergy Intermediate Hives Verified 06/12/21 16:12 Home Medications Medication Instructions Recorded Confirmed Type acetaminophen 325 mg tablet 325 mg PO QID PRN 01/16/21 06/12/21 History (Tylenol) diphenhydramine HCl 25 mg capsule 25 mg PO Q6H PRN 01/16/21 06/12/21 History (Benadryl) fenofibrate 54 mg tablet 54 mg PO QAM 01/16/21 06/12/21 History gabapentin 100 mg tablet 100 mg PO QAM 01/16/21 06/12/21 History gabapentin 100 mg tablet 300 mg PO HS 01/16/21 06/12/21 History hydrochlorothiazide 50 mg tablet 50 mg PO QAM 01/16/21 06/12/21 History losartan 50 mg tablet 50 mg PO QAM 01/16/21 06/12/21 History albuterol sulfate 90 mcg/actuation 1 inh INHALATION Q4H PRN 06/12/21 06/12/21 History aerosol inhaler cyanocobalamin (vitamin B-12) 100 100 mcg PO QAM 06/12/21 06/12/21 History mcg tablet (Vitamin B-12) empagliflozin 10 mg tablet 10 mg PO QAM 06/12/21 06/12/21 History (Jardiance) gabapentin 100 mg tablet 100 mg PO QPM 06/12/21 06/12/21 History lorazepam 0.5 mg tablet 0.5 mg PO DAILY PRN 06/12/21 06/12/21 History metformin 1,000 mg tablet 1,000 mg PO BID 06/12/21 06/12/21 History Past Med/Surg History Medical History DM type 2 (diabetes mellitus, type 2) NIDDM History of kidney stones HLD (hyperlipidemia) HTN (hypertension) Neuropathy Obesity Osteoarthritis Urinary incontinence Surgical History History of bilateral breast reduction surgery History of cholecystectomy History of D&C History of left knee replacement Left TKA (04/10/17): SAB at L4-L5 + PNB at [facility]. No issues per anesthesia progress note. 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: No Beliefs That Will Affect Care: None Current Living Situation: Alone Feels Safe at Home: Yes Assistive Devices: Glasses Review of Systems All systems reviewed & are unremarkable except as noted in HPI & below Physical Exam Constitutional: well developed and well nourished; no acute distress Eyes: PERRL, conjunctivae normal, anicteric sclerae ENMT: external ear and nose normal, oropharynx normal Neck: trachea midline, no thyromegaly Respiratory: normal respiratory effort, lungs clear to auscultation Cardiovascular: RRR, no murmur, no edema Musculoskeletal: Right knee: Tenderness medial joint line with mild effusion. Positive Calvin's. Stable to valgus and varus stress. ROM 10-90 degrees. Skin: no rashes, warm and dry Neurologic: patellar DTR's 2+ bilat, sensation intact Psychiatric: A+Ox3, euthymic affect Results & Data ([facility]) Diagnostic Findings Right knee: Endstage tricompartmental osteoarthritis most severe medial and patellofemoral compartments. Bone on bone medial compartment. Periarticular osteophyte formation and subchondral sclerosis.
[2021-07-01] MEDS ORDERED: VANCOMYCIN HCL 1,500 MG in SODIUM CHLORIDE 0.9% 500 ML IV SCH ×2 (06:00→19:45)
[2021-07-01] MEDS ORDERED: ROPIVACAINE 0.5% HCL/PF 150 MG, BUPIVACAINE 0.75% MPF 20 ML, EPINEPHrine 30MG/30ML (OR ... INSTIL SCH (06:00)
[2021-07-01] MEDS ORDERED: LR 500ML BOLUS, THEN 15ML/HR IV SCH (06:00)
[2021-07-01] MEDS ORDERED: ACETAMINOPHEN 500 MG TAB PO SCH (06:00)
[2021-07-01] MEDS ORDERED: FAMOTIDINE 20 MG TAB PO SCH (06:00)
[2021-07-01] MEDS ORDERED: TRANEXAMIC ACID 1,000 MG **IV Pre-op IV SCH (06:00)
[2021-07-01] MEDS ORDERED: TRANEXAMIC ACID 1,000 MG **IV Intra-op IV SCH (06:00)
[2021-07-01] MEDS ORDERED: CeleBREX 200 MG CAP PO SCH (06:00)
[2021-07-01] MEDS ORDERED: METOCLOPRAMIDE HCL 10 MG TABLET PO SCH (06:00)
[2021-07-01] MEDS ORDERED: GABAPENTIN 300 MG CAP PO SCH ×2 (06:00→21:00)
[2021-07-01] MEDS ORDERED: ROPIVACAINE 0.5% 5 MG/ML 30 ML VIAL ONE (06:39)
[2021-07-01] MEDS ORDERED: EPINEPHrine INJ 1 MG/ML AMP ONE (06:39)
[2021-07-01] MEDS ORDERED: ORTHO JOINT ANESTHETIC ONE (06:49)
[2021-07-01] MEDS ORDERED: PROPOFOL IV EMULSION 10 MG/ML 20 ML VIAL IV ONE (06:55)
[2021-07-01] MEDS ORDERED: MIDAZOLAM HCL 1 MG/ML 2ML VIAL ONE (06:55)
[2021-07-01] MEDS ORDERED: LIDOCAINE 2% 2 ML VIAL/AMP(20MG/ML) INFIL ONE (06:55)
[2021-07-01] MEDS ORDERED: BUPIVACAINE 0.5 % 5 MG/1 ML PF 10ML VIAL ONE (07:03)
--- NOTE | 2021-07-01 07:10 | History & Physical Bridge Note ---
Date of Service July 01, 2021 History & Physical Bridge Note I have examined the patient, reviewed the History & Physical and in the interval since the performance of the History & Physical I have noted the following changes of clinical significance: no changes noted
[2021-07-01] MEDS ORDERED: ATROPINE SULFATE 0.1 MG/ML 10ML SYR IV PRN (07:43)
[2021-07-01] MEDS ORDERED: fentaNYL citrate 100 MCG/2 ML VIAL IV PRN (07:43)
[2021-07-01] MEDS ORDERED: ePHEDrine sulfate 50 MG/ML AMP IV PRN (07:43)
[2021-07-01] MEDS ORDERED: HYDROmorphone INJ 1 MG/ML SYRINGE IV PRN (07:43)
[2021-07-01] MEDS ORDERED: ONDANSETRON INJ 2 MG/ML 2 ML VIAL IV PRN ×2 (07:43→11:28)
[2021-07-01] MEDS ORDERED: ePHEDrine sulfate 50 MG/ML SYR ONE (08:21)
--- NOTE | 2021-07-01 09:48 | Post Operative Brief Note ---
Immediate Post Op Note v1 Date of Surgery July 01, 2021 Pre & Post Diagnosis Operation Date: 07/01/21 07:15 Pre-Op Diagnosis: Right Knee Osteoarthritis Post-Op Diagnosis: Right Knee Osteoarthritis I identified the patient and participated in the time-out.: Yes Procedure Operation Date: 07/01/21 07:15 Actual Procedures p Right Total Knee Arthroplasty(Right) - Pradeep Wright MD Surgeon Pradeep Wright MD Coordinator Cardiopulmonary Services Pato MARR Estimated Blood Loss 5 Findings Consistent with Post-Op Diagnosis Specimens Bone cuts Drains Hemovac Drain Anesthesia Type MAC Spinal Regional Complications none Disposition Disposition: Recovery Room Overlapping Procedure I was immediately available: during the entire case.
--- NOTE | 2021-07-01 10:01 | Operative Report ---
Post Operative Report Pre & Post Diagnosis Operation Date: 07/01/21 07:15 Pre-Op Diagnosis: Right Knee Osteoarthritis Post-Op Diagnosis: Right Knee Osteoarthritis, probable osteoporosis I identified the patient and participated in the time-out.: Yes Procedure Operation Date: 07/01/21 07:15 Actual Procedures p Right Total Knee Arthroplasty(Right) - Pradeep Wright MD Surgeon Pradeep Wright MD School Business Manager Pato MARR Estimated Blood Loss 5 Findings Consistent with Post-Op Diagnosis Specimens Bone cuts Drains 2 Hemovac Anesthesia Type MAC Spinal Regional Complications none Disposition Disposition: Recovery Room Indications 75-year female with chronic progressive osteoarthritis in her right knee with severe tricompartmental DJD [id number] medial and lateral compartments. Patient had previous successful left knee replacement. Description of Procedure The patient was taken to the operating room and anesthetized under spinal MAC regional block. Patient was placed supine on the the operating table. A pneumatic tourniquet was placed about the right upper thigh. Patient has significant abdominal obesity but only mild obesity the upper thigh the leg. She did have some edema of the right and left lower extremities calf down to the foot with some chronic swelling of the feet. The knee exam demonstrated flexion contracture of 20 degrees with flexion only to 95 degrees. The involved leg was elevated exsanguinated with Esmarch bandage and the pneumatic tourniquet was raised to 325 millimeters mercury. A longitudinal incision was made across the anterior knee. Skin flaps were elevated. An incision was made into the medial retinaculum and extended up into the mid third of the quadriceps tendon and extended down to the tibial tubercle. Intra-articular findings demonstrated severe tricompartmental DJD [id number] medial lateral compartments. Large patellar osteophytes. There are loose bodies large posterior osteophytes on the condyles. The knee was exposed by excising cruciate ligaments and menisci. The infrapatellar fat pad was resected. The fat pad over the anterior femur at the upper aspect of the articular surface was resected for placement of the component in that area. A subperiosteal peel lateral release was performed around the patella. All osteophytes were resected. The [employer]hew journey 2.0 total knee arthroplasty system was utilized for the procedure. The drill hole was made into the intramedullary canal and the guide yvonne was placed in the canal. The distal femoral cut was adjusted to resect 5 degree valgus cut and we used a +2 resection due to flexion contracture. The distal femoral cut was made. It was noted that the bone was very soft consistent with osteoporosis. The femoral sizing guide was placed and drill holes were made 3 degrees of external rotation to match epicondylar axis. Femur sized for a size 6 component. The size,6, 5 in 1 cutting block was placed. The anterior posterior and chamfer cuts were made. The knee was extended and a free hand cut technique was performed to the patella. The patella with was measured and the width was reproduced using a 35 symmetrical patella component. 3 drill holes are made for the patella component pegs. The tibia was then subluxed. The external tibial cutting guide was adjustedto make a perpendicular cut the long axis of tibia placing some slope on the cut. The proximal tibial cut was made with the oscillating saw. Bone was very soft consistent with osteoporosis. The size 4 tibial trial was externally rotated in line with the tibial tubercle and pinned in position. The punch for the stem was used. The femoral trial was inserted and centered the notch cutting devices were used and the collet was placed. Tibial trials were used for the insert. The size 13 posterior stabilized trial gave balanced ligaments through full range of motion. Patella tracking was assessed with range of motion. The patella tracked centrally. The trials were removed. The Orthomix anesthetic cocktail was injected per protocol. The cut bone surfaces and soft tissue were copiously irrigated with antibiotic solution with bacitracin. The final components were cemented with Simplex cement. The final components were Zamora [employer] Nephew journey 2.0 size 6 right femoral component, size 4 right tibial component, 13 posterior stabilized right tibial polyethylene and a 35 symmetrical patella. Afterthe cement cured the Betadine soak was used per protocol. When the cement cured the knee was copiously irrigated with pulsatile lavage saline solution. 2 drains were brought out laterally connected to Hemovac. The quadriceps tendon and medial retinaculum were closed with interrupted [id number] #1 Vicryl sutures. The knee was taken through full range of motion and repair was secure. The subcutaneous tissues were closed with 2-0 Vicryl sutures. The skin was closed with jamey. A sterile Silverlon dressing was applied. The tourniquet was let down and the patient had good capillary refill to the extremity. The patient tolerated the procedure well. My physician psychiatric nursing assistant Pato Panda function as administrative personal assistant and participated in all aspects of the procedure including prepping draping leg positioning soft tissue retraction instrument management and assisted in the closure ,dressings application and will participate in postoperative care the patient. I attest to the content of the Intraoperative Record and any orders documented therein. Any exceptions are noted below.
--- NOTE | 2021-07-01 10:08 | XRay Report ---
RIGHT KNEE 2 VIEWS History: Right total knee arthroplasty. Degenerative arthritis. Postop. FINDINGS: The patient is status post a right total knee arthroplasty. The hardware is intact. No frac ture or dislocation. Skin jamey and surgical drains are in place. IMPRESSION: Right total knee arthroplasty. No evidence for hardware complication. ACT 112: Negative or not required by law. Electronically signed by: Rafal Foster M.D. 07/01/2021 10:07 AM
--- NOTE | 2021-07-01 11:20 | Anesthesiology Progress Note ---
Date of Service July 01, 2021 Anesthesia Post Procedure Vital Signs Vital Signs: Temp Pulse Pulse Resp BP Pulse Ox 07/01/21 11:00 84 12 118/64 95 07/01/21 10:45 75 12 116/57 L 92 07/01/21 10:30 82 12 113/63 93 07/01/21 10:20 87 14 123/68 93 07/01/21 10:10 36.7 C 91 H 12 117/70 93 07/01/21 10:00 86 12 117/66 97 07/01/21 09:50 88 12 118/62 99 07/01/21 09:43 37.0 C 91 H 14 118/62 97 07/01/21 05:34 36.9 C 99 H 20 154/78 H 97 Pain Intensity Back: Pain Intensity: 0 Right Knee: Pain Intensity: 0 Transfer of Care Handoff Completed per policy Notes Mental Status: alert / awake / arousable and participated in evaluation Patient Amnestic to Procedure: Yes Nausea / Vomiting: adequately controlled Pain: adequately controlled Airway Patency, RR, SpO2: stable & adequate BP & HR: stable & adequate Hydration State: stable & adequate Neuraxial Anesthesia: was administered and sensory block is resolving Anesthetic Complications: no major complications apparent and Pt Satisfied with anesthetic care
[2021-07-01] MEDS ORDERED: HYDROmorphone INJ 0.5 MG/0.5 ML SYR IV PRN (11:28)
[2021-07-01] MEDS ORDERED: VANCOMYCIN CONSULT ACTIVE PRN (11:28)
[2021-07-01] MEDS ORDERED: METOCLOPRAMIDE HCL INJ 5 MG/ML 2 ML VIAL IV PRN (11:28)
[2021-07-01] MEDS ORDERED: PHARMACY GLYCEMIC MGMT CONSULT PRN (11:28)
[2021-07-01] MEDS ORDERED: diphenhydrAMINE Capsule 25 MG CAP PO PRN (11:28)
[2021-07-01] MEDS ORDERED: ALBUTEROL HFA 8 GM INHALER INH PRN (11:28)
[2021-07-01] MEDS ORDERED: oxyCODONE HCL IR 5 MG TAB (IMMEDIATE RELEASE) PO PRN (11:28)
[2021-07-01] MEDS ORDERED: NALOXONE HCL 0.4 MG/1 ML VIAL/CARP IV PRN (11:28)
[2021-07-01] MEDS ORDERED: MAGNESIUM HYDROXIDE SUSP 30 ML UDC PO PRN (11:28)
[2021-07-01] MEDS ORDERED: LORazepam 0.5 MG TAB PO PRN (11:28)
[2021-07-01] MEDS ORDERED: SODIUM CHLORIDE 0.9% 1000ML 1,000 ML IV SCH (11:28)
[2021-07-01] MEDS ORDERED: bisacodyL 10 MG SUPP PR PRN (11:28)
[2021-07-01] MEDS: GENERAL ORDER PROBLEM SCH ×4 (11:58→19:19)
[2021-07-01] MEDS ORDERED: GLUCOSE 10 TABS/TUBE PO PRN (12:15)
[2021-07-01] MEDS ORDERED: DEXTROSE 50% 50 ML SYRINGE IV PRN (12:15)
[2021-07-01] MEDS ORDERED: GLUCAGON FOR INJ 1 MG VIAL IM PRN (12:15)
[2021-07-01] MEDS ORDERED: CARBOHYDRATES FOR HYPOGLYCEMIA PO PRN (12:15)
[2021-07-01] MEDS ORDERED: GLUCOSE 40% GEL 15 GM TUBE PO PRN (12:15)
[2021-07-01] MEDS ORDERED: LANTUS PER UNIT CHARGE SQ ONE (12:15)
--- NOTE | 2021-07-01 12:18 | Pharmacy Report ---
Pharmacy Glycemic Short Note 2 - Date of Service July 01, 2021 - Glycemic Short BSG Results (Last 24 hours): 07/01/21 07/01/21 07/01/21 05:33 09:45 11:51 POC Glucose 176 H 137 H 155 H OUTPATIENT ANTIDIABETIC REGIMEN: * Empagliflozin * Metformin * HbA1c 6.7% on 06/14/21 ASSESSMENT: * 75 yo F with well controlled T2DM admitted 07/01 for R TKA * Will initiate low-dose Lantus today x1 due to surgical stressors and desired BSG's < 140 mg/dL in the immediate post-op period. Anticipate that this may not need to be continued * Will initiate weight-based moderate stress Novolog PLAN FOR INPATIENT GLYCEMIC CONTROL: * Hold outpatient diabetes medications * Basal insulin * Lantus 20 units SQ x1 * Bolus insulin * NovoLog per scale ACHS or Q6hrs while NPO * Goal Range: Low 110 mg/dL - High 140 mg/dL * Correction Factor: 25 mg/dL/unit * Nutritional / Prandial insulin per carb ratio of 1 unit per 8 grams CHO consumed
--- NOTE | 2021-07-01 12:37 | Hospitalist Consultation ---
Date of Consultation July 01, 2021 Assessment & Plan (1) Aftercare following knee joint replacement surgery: POD #0 from right total knee - Pain control per primary service- rescue Narcan available - ABX per primary service - Drains per primary service - Dressings per primary service - IVF per primary service - Diet per primary service - PT/OT per primary service - Transfusions per primary service - Famotidine for GI prophylaxis while on scheduled Celebrex and ASA - VTE: SCDs, asa per primary service (2) HTN (hypertension): Follow hemodynamics through PM- did require some Neosynepherine intraoperatively - Hold HCTZ and ARB- restart in morning if renal function and volume status appropriate (3) HLD (hyperlipidemia): Continue fenofibrate- follow up with PCP (4) DM type 2 (diabetes mellitus, type 2): HGB A1c >8 on previous chart review - Hold Metformin and Jardiance - agree with glycemic management consult with hypoglycemic protocol - Goal <180 - Follow up with PCP (5) Anxiety: PRN benzo- home lorazepam prn continue (6) Neuropathy: Continue with gabapentin Supervising Physician Co-Signing Physician Notes Attending addendum: I have physically seen this patient, have supervised the SHREYA's activities, and agree with the H&P unless as otherwise noted. Assessment and Plan: Status post right total knee arthroplasty- Seen postoperatively, medically stable Primary service to follow interventions as noted Hypertension- Hold HCTZ and losartan, can restart in a.m. if normal renal function and PRP Hypertriglyceridemia- Continue fenofibrate Diabetes mellitus- Hold metformin and Jardiance Glycemic management consult already placed Check hemoglobin A1c Other recommendations as noted We will follow during hospital stay History of Present Illness Reason for Consultation: Medical Management Requesting Physician: Dr. Wright Attending Physician: Pradeep Wright MD History of Present Illness 75 YOF with past medical history of: HTN, HLD, DMII, DM neuropathy, Osteoarthritis of the knees, elevated Liver Enzymes (December 04). Patient is POD # 0 from Rt total knee replacement with spianl regional anesthesia and EBL of 5ml. Patient was evaluated in her room on the surgical simeon postoperatively. The patient was initially to have surgery in Mar 05, but was delayed secondary to COVID 19. Her medical clearance and History was reviewed from January 2021 as well as most recent labs and ECG from that time. The patient is briskly awake and in good spirits. She had just finished her lunch, where she ate 100% without nausea and/or vomiting. She is on room air and vitals were reviewed. She has her rigt leg wrapped with ice wrap and BRANDIE drain to her knee, the rest of the leg is also wrapped with AN wrap. Patient denies any changes to her medical or physical conditioning prior to today's visit. She denies and cardiopulmonary changes to her activity or any symptoms. Patient with good pain control at this time and still with effects from spinal anesthesia although starting to diminish. Recomendations: - Hold HCTZ- follow volume status, Na level, and Renal indices in the morning- likely restart - Hold ARB- follow renal function and hemodynamic trend in the morning- likely restart - Pain controlled tiered with rescue Narcan as you have available - BMP, with MG, and CBC in the morning - Glycemic Pharmacy consult placed by primary service - reviewed - Added Famotidine in AM while on scheduled NSAID and ASA Allergies Allergy/AdvReac Type Severity Reaction Status Date / Time Penicillins Allergy Intermediate Hives Verified 07/01/21 05:29 Home Medications Medication Instructions Recorded Confirmed Type acetaminophen 325 mg tablet 325 mg PO QID PRN 01/16/21 07/01/21 History (Tylenol) diphenhydramine HCl 25 mg capsule 25 mg PO Q6H PRN 01/16/21 07/01/21 History (Benadryl) fenofibrate 54 mg tablet 54 mg PO QAM 01/16/21 07/01/21 History gabapentin 100 mg tablet 100 mg PO QAM 01/16/21 07/01/21 History gabapentin 100 mg tablet 300 mg PO HS 01/16/21 07/01/21 History hydrochlorothiazide 50 mg tablet 50 mg PO QAM 01/16/21 07/01/21 History losartan 50 mg tablet 50 mg PO QAM 01/16/21 07/01/21 History albuterol sulfate 90 mcg/actuation 1 inh INHALATION Q4H PRN 06/12/21 07/01/21 History aerosol inhaler cyanocobalamin (vitamin B-12) 100 100 mcg PO QAM 06/12/21 07/01/21 History mcg tablet (Vitamin B-12) empagliflozin 10 mg tablet 10 mg PO QAM 06/12/21 07/01/21 History (Jardiance) gabapentin 100 mg tablet 100 mg PO QPM 06/12/21 07/01/21 History lorazepam 0.5 mg tablet 0.5 mg PO DAILY PRN 06/12/21 07/01/21 History metformin 1,000 mg tablet 1,000 mg PO BID 06/12/21 07/01/21 History acetaminophen 500 mg tablet 1,000 mg PO Q8 14 Days #84 tab 07/02/21 Rx (Tylenol Extra Strength) aspirin 81 mg tablet,delayed 81 mg PO BID 30 Days #60 tab 07/02/21 Rx release doxycycline hyclate 100 mg capsule 100 mg PO BID 7 Days #14 cap 07/02/21 Rx oxycodone 5 mg tablet 5 mg PO Q4H PRN #30 tab MDD 6 07/02/21 Rx polyethylene glycol 3350 17 gram 17 g PO DAILY PRN #5 ea 07/02/21 Rx oral powder packet (Miralax) Patient History Medical History (Updated 07/01/21 @ 13:22 by DG Sierra) DM type 2 (diabetes mellitus, type 2) NIDDM History of kidney stones HLD (hyperlipidemia) HTN (hypertension) Neuropathy Obesity Osteoarthritis Urinary incontinence Surgical History History of bilateral breast reduction surgery History of cholecystectomy History of D&C History of left knee replacement Left TKA (04/10/17): SAB at L4-L5 + PNB at [facility]. No issues per anesthesia progress note. Family History Sister PONV (postoperative nausea and vomiting) Social History Smoking Status: Never smoker Second Hand Exposure: No; Do You Dip or Chew Tobacco: No; Tobacco Cessation Education Requested by Patient: No Hx Alcohol Use: Yes Hx Substance Use: No Preferred Language: Maltese Communication Ability: Effective Scrum Master Required: No Beliefs That Will Affect Care: None marital status: / Current Living Situation: Alone Other Information That Helps Us Care for You: No Feels Safe at Home: Yes Safety Concerns: Feels Safe At This Time Assistive Devices: Walker Review of Systems Review of Systems: REVIEW OF SYSTEMS: Constitutional: No fever, sweats or chills Eyes: No diplopia, no worsening or blurred vision- wears glasses ENT: normal hearing, no trouble swallowing Respiratory: No cough, sputum, dyspnea at rest or on exertion Cardiovascular: No chest pain, tightness or palpitations Abdomen: No pain, nausea, vomiting, diarrhea or constipation Musculoskeletal: (+) left hip sciatica pain, No calf pain, swelling Neurologic: No weakness, numbness/tingling, or balance problems Psychiatric: No anxiety or depression Skin: No rash or itch Physical Exam Physical Exam: PHYSICAL EXAM: General: awake, alert, no apparent distress Head: Normocephalic, atraumatic ENT: PERRLA, EOMI, no pharyngeal exudate, mucous membranes moist Neuro: AAO x 3, speech clear and appropriate, strength intact bilaterally 5/5, sensation intact to left upper and lower and right upper. right lower with effects from spinal anesthesia- decreased sensation from upper quad to just below the knee, sensation present in foot. Chest: equal rise and fall of the chest, no accessory muscle use, no heaves or thrills, Clear to auscultation, on room air, Cardiac: Regular rate and rhythm, S1S2, skin warm dry, cap refill <3 seconds, peripheral pulses +2 no JVD, no murmur, Trace lower extremity edema to bilateral feet and ankles GI: NABS x 4 quadrants, soft, nontender to palpation, no rebound, guarding or tenderness MSK: right leg wrapped with an wrap- SCD and ice wrap with Hemovac drain to knee- small amount of serous/sang drainage : Spontaneously voiding, no pain, no CVA tenderness, Psych: Normal mood and affect Skin: no rash or erythema Results & Data Results & Data ([facility]) Vital Signs (Past 12 Hours) Vital Signs Temp Pulse Pulse Resp BP Pulse Ox 07/01/21 12:14 36.5 C 79 17 105/63 97 07/01/21 11:53 36.7 C 72 17 106/63 97 07/01/21 11:10 36.6 C 83 16 113/68 95 07/01/21 11:00 84 12 118/64 95 07/01/21 10:45 75 12 116/57 L 92 07/01/21 10:30 82 12 113/63 93 07/01/21 10:20 87 14 123/68 93 07/01/21 10:10 36.7 C 91 H 12 117/70 93 07/01/21 10:00 86 12 117/66 97 07/01/21 09:50 88 12 118/62 99 07/01/21 09:43 37.0 C 91 H 14 118/62 97 07/01/21 05:34 36.9 C 99 H 20 154/78 H 97 Laboratory Results Abnormal lab results 07/01/21 07/01/21 07/01/21 Range/Units 05:33 09:45 11:51 POC Glucose 176 H 137 H 155 H (70-99) mg/dl Diagnostic Findings Knee X-Ray 07/01/21 09:46 RIGHT KNEE 2 VIEWS History: Right total knee arthroplasty. Degenerative arthritis. Postop. FINDINGS: The patient is status post a right total knee arthroplasty. The hardware is intact. No fracture or dislocation. Skin jamey and surgical drains are in place. IMPRESSION: Right total knee arthroplasty. No evidence for hardware complication. ACT 112: Negative or not required by law. Electronically signed by: Rafal Foster M.D. 07/01/2021 10:07 AM Medications Administered Insulin Aspart (Insulin Aspart Per Unit) 0 units SC [facility]; Protocol Stop: 07/31/21 12:14 Last Admin: 07/01/21 12:50 Dose: 5 units Documented by: [id number] Cosigned by: [id number] Discontinued Medications Acetaminophen (Acetaminophen 500 Mg Tab) 1,000 mg PO PREOP RANJAN Stop: 07/01/21 18:00 Last Admin: 07/01/21 05:52 Dose: 1,000 mg Documented by: [id number] Celecoxib (Celebrex 200 Mg Cap) 200 mg PO PREOP RANJAN Stop: 07/01/21 18:00 Last Admin: 07/01/21 05:52 Dose: 200 mg Documented by: [id number] Famotidine (Famotidine 20 Mg Tab) 20 mg PO PREOP RANJAN Stop: 07/01/21 18:00 Last Admin: 07/01/21 05:52 Dose: 20 mg Documented by: [id number] Gabapentin (Gabapentin 300 Mg Cap) 300 mg PO PREOP RANJAN Stop: 07/01/21 18:00 Last Admin: 07/01/21 05:52 Dose: 300 mg Documented by: [id number] Lactated Ringer's (Lr) 1,000 mls @ 15 mls/hr IV .Q24H [facility] Stop: 07/01/21 18:00 Last Infusion: 07/01/21 07:33 Dose: 0 mls/hr Documented by: [id number] Admin: 07/01/21 05:49 Dose: 15 mls/hr Documented by: [id number] Ropivacaine 150 mg/Bupivacaine HCl 20 ml/Epinephrine HCl 0.15 mg/Ketorolac Tromethamine 30 mg/Ketamine HCl 10 mg/ Clonidine HCl 100 mcg/ Sodium Chloride 87.35 mls @ 0 mls/hr INSTIL TODAY@0600 [facility]; Protocol Stop: 07/06/21 05:59 Last Admin: 07/01/21 09:19 Dose: Not Given Documented by: [id number] Tranexamic Acid (Tranexamic Acid / 0.7% Nacl) 1,000 mg in 100 mls @ 600 mls/hr IV TODAY@0600 [facility] Stop: 07/01/21 18:00 Last Infusion: 07/01/21 11:59 Dose: 0 mls/hr Documented by: [id number] Admin: 07/01/21 07:12 Dose: 600 mls/hr Documented by: [id number] Tranexamic Acid (Tranexamic Acid / 0.7% Nacl) 1,000 mg in 100 mls @ 600 mls/hr IV TODAY@0600 [facility] Stop: 07/01/21 18:00 Last Admin: 07/01/21 11:59 Dose: Not Given Documented by: [id number] Vancomycin HCl 1,500 mg/ (Sodium Chloride) 530 mls @ 200 mls/hr IV PREOP [facility] Stop: 07/02/21 05:59 Last Infusion: 07/01/21 11:59 Dose: 0 mls/hr Documented by: [id number] Admin: 07/01/21 05:49 Dose: 200 mls/hr Documented by: [id number] Insulin Glargine (Lantus Per Unit Charge) 20 units SQ NOW ONE; Protocol Stop: 07/01/21 12:16 Last Admin: 07/01/21 12:50 Dose: 20 units Documented by: [id number] Cosigned by: [id number] Metoclopramide HCl (Metoclopramide Hcl 10 Mg Tablet) 10 mg PO PREOP [facility] Stop: 07/01/21 18:00 Last Admin: 07/01/21 05:52 Dose: 10 mg Documented by: [id number] Miscellaneous (General Order Problem) 1 ea N/A QS RANJAN Stop: 07/27/21 15:59 Last Admin: 07/01/21 11:59 Dose: Not Given Documented by: [id number] Admin: 07/01/21 11:58 Dose: Not Given Documented by: [id number] Admin: 07/01/21 11:58 Dose: Not Given Documented by: [id number] Admin: 07/01/21 11:58 Dose: Not Given Documented by: [id number] Admin: 07/01/21 11:58 Dose: Not Given Documented by: [id number] Miscellaneous (Ortho Joint Anesthetic ) Confirm Administered Dose 1 ea .ROUTE .STK-MED ONE Stop: 07/01/21 06:50 Last Admin: 07/01/21 09:20 Dose: 1 ea Documented by: [id number] Home Medications acetaminophen 325 mg tablet (Tylenol) 325 mg PO QID PRN 01/16/21 [History Confirmed 07/01/21] diphenhydramine HCl 25 mg capsule (Benadryl) 25 mg PO Q6H PRN 01/16/21 [History Confirmed 07/01/21] fenofibrate 54 mg tablet 54 mg PO QAM 01/16/21 [History Confirmed 07/01/21] gabapentin 100 mg tablet 100 mg PO QAM 01/16/21 [History Confirmed 07/01/21] gabapentin 100 mg tablet 300 mg PO HS 01/16/21 [History Confirmed 07/01/21] hydrochlorothiazide 50 mg tablet 50 mg PO QAM 01/16/21 [History Confirmed 07/01/21] losartan 50 mg tablet 50 mg PO QAM 01/16/21 [History Confirmed 07/01/21] albuterol sulfate 90 mcg/actuation aerosol inhaler 1 inh INHALATION Q4H PRN 06/12/21 [History Confirmed 07/01/21] cyanocobalamin (vitamin B-12) 100 mcg tablet (Vitamin B-12) 100 mcg PO QAM 06/12/21 [History Confirmed 07/01/21] empagliflozin 10 mg tablet (Jardiance) 10 mg PO QAM 06/12/21 [History Confirmed 07/01/21] gabapentin 100 mg tablet 100 mg PO QPM 06/12/21 [History Confirmed 07/01/21] lorazepam 0.5 mg tablet 0.5 mg PO DAILY PRN 06/12/21 [History Confirmed 07/01/21] metformin 1,000 mg tablet 1,000 mg PO BID 06/12/21 [History Confirmed 07/01/21] Active Medications Acetaminophen (Acetaminophen 500 Mg Tab) 1,000 mg PO Q8 [facility] Stop: 07/31/21 13:59 Albuterol (Albuterol Hfa 8 Gm Inhaler) 1 puffs INH Q4R PRN PRN Reason: Shortness Of Breath Stop: 07/31/21 11:27 Aspirin (Aspirin 81 Mg Ectab) 81 mg PO BID [facility] Stop: 07/31/21 20:59 Bisacodyl (Bisacodyl 10 Mg Supp) 10 mg DE DAILY PRN PRN Reason: Constipation Stop: 07/31/21 11:27 Celecoxib (Celebrex 200 Mg Cap) 200 mg PO BID [facility] Stop: 07/31/21 20:59 Cyanocobalamin (Cyanocobalamin (B-12) 100 Mcg Tablet) 100 mcg PO QAM [facility] Stop: 08/01/21 08:59 Dextrose (Dextrose 50% 50 Ml Syringe) 25 - 50 ml IV UD PRN; Protocol PRN Reason: Hypoglycemia Protocol Stop: 07/31/21 12:14 Diphenhydramine HCl (Diphenhydramine Capsule 25 Mg Cap) 25 mg PO Q6H PRN PRN Reason: Allergy Symptoms Stop: 07/31/21 11:27 Docusate Sodium (Docusate Sodium 100 Mg Cap) 100 mg PO BID [facility] Stop: 07/31/21 20:59 Gabapentin (Gabapentin 100 Mg Cap) 100 mg PO DAILY@1200 [facility]; Protocol Stop: 07/31/21 12:59 Gabapentin (Gabapentin 300 Mg Cap) 300 mg PO HS [facility] Stop: 07/31/21 20:59 Gabapentin (Gabapentin 100 Mg Cap) 100 mg PO QAM [facility] Stop: 08/01/21 08:59 Glucagon (Glucagon For Inj 1 Mg Vial) 1 mg IM UD PRN; Protocol PRN Reason: Hypoglycemia Protocol Stop: 07/31/21 12:14 Glucose (Glucose 40% Gel 15 Gm Tube) 15 - 30 gm PO UD PRN; Protocol PRN Reason: Hypoglycemia Protocol Stop: 07/31/21 12:14 Glucose (Glucose 10 Tabs/Tube) 4 - 8 tabs PO UD PRN; Protocol PRN Reason: Hypoglycemia Protocol Stop: 07/31/21 12:14 Hydrochlorothiazide (Hydrochlorothiazide 25 Mg Tab) [facility] Stop: 08/01/21 08:59 Hydromorphone HCl (Hydromorphone Inj 0.5 Mg/0.5 Ml Syr) 0.5 mg IV Q4H PRN PRN Reason: Pain or Pre PT Stop: 07/15/21 11:27 Sodium Chloride (Nss 1000ml) 1,000 mls @ 100 mls/hr IV .Q10H [facility] Stop: 07/02/21 06:00 Vancomycin HCl 1,500 mg/ (Sodium Chloride) 250 mls @ 200 mls/hr IV Q12H [facility] Stop: 07/01/21 20:59 Famotidine 20 mg/ Syringe 5 mls @ 2.5 mls/min IV [facility] Stop: 08/01/21 08:59 Insulin Aspart (Insulin Aspart Per Unit) 0 units SC [facility]; Protocol Stop: 07/31/21 12:14 Last Admin: 07/01/21 12:50 Dose: 5 units Documented by: Lorazepam (Lorazepam 0.5 Mg Tab) 0.5 mg PO DAILY PRN PRN Reason: Anxiety Stop: 07/31/21 11:27 Losartan Potassium (Losartan Potassium 50 Mg Tab) 50 mg PO [facility] Stop: 08/01/21 08:59 Magnesium Hydroxide (Magnesium Hydroxide Susp 30 Ml Udc) 30 ml PO Q6H PRN PRN Reason: Constipation Stop: 07/31/21 11:27 Metoclopramide HCl (Metoclopramide Hcl Inj 5 Mg/Ml 2 Ml Vial) 10 mg IV Q6H PRN PRN Reason: Nausea And Vomiting Stop: 07/31/21 11:27 Miscellaneous (Fenofibrate 54mg Tablet~Order Awaiting Action) 1 ea N/A QS [facility] Stop: 07/31/21 15:59 Miscellaneous (Carbohydrates For Hypoglycemia ) 15 - 30 gm PO UD PRN PRN Reason: Hypoglycemia Treatment Stop: 07/31/21 12:14 Miscellaneous Information (Pharmacy Glycemic Mgmt Consult) 1 ea N/A UD PRN PRN Reason: Consult Stop: 07/31/21 11:27 Multivitamins (Multivitamin Tab) 1 [facility] Stop: 08/01/21 08:59 Naloxone HCl (Naloxone Hcl 0.4 Mg/1 Ml Vial/Carp) 0.1 mg IV Q5M PRN PRN Reason: Oversedation/Resp Depression Stop: 07/31/21 11:27 Ondansetron HCl (Ondansetron Inj 2 Mg/Ml 2 Ml Vial) 4 mg IV Q6H PRN PRN Reason: Nausea And Vomiting Stop: 07/31/21 11:27 Oxycodone HCl (Oxycodone Hcl Ir 5 Mg Tab (Immediate Release)) 5 - 10 mg PO Q4H PRN PRN Reason: Pain or Pre PT Stop: 07/15/21 11:27 Sennosides (Senna 8.6 Mg Tab) 17.2 mg PO HS [facility] Stop: 07/31/21 20:59 PG Care Time/CCT Total # of Minutes Spent Total Time Spent with Patient: Total time spent is greater than 50% in coordination of care (as documented) at patient's floor/unit and/or counseling patient: Coding Level of Care Code 18483 Office/OBS Consult Lvl 3 Diagnoses Aftercare following knee joint replacement surgery Z47.1; Z96.659 HTN (hypertension) I10 HLD (hyperlipidemia) E78.5 DM type 2 (diabetes mellitus, type 2) E11.9 Anxiety F41.9 Neuropathy G62.9
[2021-07-01] MEDS: INSULIN ASPART PER UNIT SC SCH ×3 (12:50→21:28)
[2021-07-01] MEDS ORDERED: GABAPENTIN 100 MG CAP PO SCH (13:00)
[2021-07-01] MEDS: ACETAMINOPHEN 500 MG TAB PO SCH ×2 (13:26→21:38)
[2021-07-01] MEDS ORDERED: VANCOMYCIN HCL 1,500 MG in SODIUM CHLORIDE 0.9% 250 ML IV SCH (19:45)
[2021-07-01] MEDS: ASPIRIN 81 MG ECTAB PO SCH (19:55)
[2021-07-01] MEDS: CeleBREX 200 MG CAP PO SCH (19:57)
[2021-07-01] MEDS: DOCUSATE SODIUM 100 MG CAP PO SCH (19:58)
[2021-07-01] MEDS ORDERED: SENNA 8.6 MG TAB PO SCH (21:00)
[2021-07-02] MEDS: ACETAMINOPHEN 500 MG TAB PO SCH (05:52)
--- NOTE | 2021-07-02 08:14 | Orthopedic Progress Note ---
Date of Service July 02, 2021 Assessment & Plan (1) Primary osteoarthritis of right knee: Plan: Postop day 1 status post right TKA. PT/OT protocols. Weightbearing as tolerated. DVT prophylaxis-aspirin p.o. twice daily, SCDs, NIGHAT crabtree. Pain management as written. Labs pending DC planning-patient is planning for home health services upon discharge. Plan for discharge to home today pending review of laboratory values. Admission and Anticipated Discharge Date Admission Date: July 01, 2021 Subjective Postop day 1 Patient is sitting up in her chair at the bedside. She has no complaints this morning. Pleasant cooperative and in good spirits. She is hoping to go home today. Pain is controlled. Physical Exam Physical Exam: Dressings are clean, dry, and intact. Calves are soft and nontender. Neurovascular intact. Toes are mobile. She has good dorsiflexion and plantarflexion of the right foot. Hemovac drainage is minimal. Results & Data ([facility]) Vital Signs (Past 12 Hours) Vital Signs Temp Pulse Resp BP BP Pulse Ox 07/02/21 07:37 36.6 C 73 20 108/61 94 07/02/21 03:04 36.8 C 76 16 104/64 93 07/01/21 22:22 36.6 C 75 16 111/69 95 Laboratory Results Laboratory Results POC Glucose 136 mg/dl (70-99) H 07/02/21 08:10 SARS-CoV-2, RNA, NAAT NEGATIVE (NEGATIVE) 07/01/21 Unknown Impressions Knee X-Ray 07/01/21 09:46 RIGHT KNEE 2 VIEWS History: Right total knee arthroplasty. Degenerative arthritis. Postop. FINDINGS: The patient is status post a right total knee arthroplasty. The hardware is intact. No fracture or dislocation. Skin jamey and surgical drains are in place. IMPRESSION: Right total knee arthroplasty. No evidence for hardware complication. ACT 112: Negative or not required by law. Electronically signed by: Rafal Foster M.D. 07/01/2021 10:07 AM
[2021-07-02 08:50] LABS: Hematocrit (blood only) 32.7 % (37-47); Hemoglobin 10.7 g/dL (12.0-16.0); Mean Corpuscular Hemoglobin 31.8 pg (25-34); Mean Corpuscular Hgb Conc 32.7 g/dL (32-36); Mean Corpuscular Volume 97.3 fL (80-100); Mean Platelet Volume 12.3 fL (7.4-10.4); Platelet Count 128 K/uL (130-400); RDW Coefficient of Variation 14.7 % (11.5-14.5); RDW Standard Deviation 52.1 fL (36.4-46.3); Red Blood Count 3.36 M/uL (4.2-5.4); White Blood Count 4.72 K/uL (4.8-10.8)
[2021-07-02 08:51] LABS: Albumin Level 3.4 gm/dl (3.4-5.0); BUN Creatinine Ratio 34.9 (10-20); Bilirubin Direct 0.2 mg/dl (0-0.2); Bilirubin,Total 0.8 mg/dl (0.2-1.0); Calcium 8.6 mg/dl (8.5-10.1); Creatinine Clr Calc Pharmacy 64.7 ml/min; Est GFR (African American) 77.1 ml/min; Est GFR (Non-African American) 66.6 ml/min; Magnesium 1.7 mg/dl (1.7-2.4); Potassium 3.6 mmol/L (3.5-5.1); Total Protein 5.4 gm/dl (6.0-8.3)
[2021-07-02 08:52] LABS: Platelet Estimate Decreased (Normal)
[2021-07-02] MEDS: DOCUSATE SODIUM 100 MG CAP PO SCH (08:57)
[2021-07-02] MEDS: ASPIRIN 81 MG ECTAB PO SCH (08:58)
[2021-07-02] MEDS: CeleBREX 200 MG CAP PO SCH (08:58)
[2021-07-02] MEDS ORDERED: GABAPENTIN 100 MG CAP PO SCH (09:00)
[2021-07-02] MEDS ORDERED: FAMOTIDINE 20 MG in SYRINGE 3 ML IV SCH (09:00)
[2021-07-02] MEDS ORDERED: MULTIVITAMIN TAB PO SCH (09:00)
[2021-07-02] MEDS ORDERED: FENOFIBRATE 54 MG PO SCH (09:00)
[2021-07-02] MEDS ORDERED: LOSARTAN POTASSIUM 50 MG TAB PO SCH (09:00)
[2021-07-02] MEDS ORDERED: CYANOCOBALAMIN (B-12) 100 MCG TABLET PO SCH (09:00)
[2021-07-02] MEDS ORDERED: hydroCHLOROthiazide 25 MG TAB PO SCH (09:00)
[2021-07-02] MEDS: INSULIN ASPART PER UNIT SC SCH (09:02)
--- NOTE | 2021-07-02 12:53 | Hospitalist Progress Note ---
Date of Service July 02, 2021 Assessment & Plan (1) Aftercare following knee joint replacement surgery: Plan: POD #1 from right total knee - pain control and dvt ppx as per orthopedics - recommend ongoing use of IS upon return home (can use ~q4h) - home pt/ot - hemovac management per ortho - f/u with ortho as directed (2) HTN (hypertension): Plan: Follow hemodynamics through PM- did require some Neosynepherine intraoperatively - Hold HCTZ and ARB-appropriate to hold pod#1 in setting of spinal anesthesia - Can resume ARB pod#2 (3) HLD (hyperlipidemia): Plan: Continue fenofibrate- follow up with PCP (4) DM type 2 (diabetes mellitus, type 2): Plan: HGB A1c >8 on previous chart review - Hold Metformin and Jardiance - agree with glycemic management consult with hypoglycemic protocol - Goal <180 - Follow up with PCP (5) Anxiety: Plan: PRN benzo- home lorazepam prn continue (6) Neuropathy: Plan: Continue with gabapentin Plan: Patient is doing well post operatively. I have no additional recommendations to add at this time. She is felt to be medically stable for discharge home. Would advise pcp follow up as well as orthopedic f/u as scheduled. Medicine will sign off. Thank you for allowing us to participate in her care. Plan d/w attending. Admission and Anticipated Discharge Date Admission Date: July 01, 2021 Subjective Patient seen on daily rounds this morning. She is resting comfortably in bedside chair. POD#1 from elective R TKA. No chest pain or dyspnea. No h/o blood clots. Planning to stay with her sister upon d/c. She reports pain in knee is controlled. Review of Systems Review of Systems: All systems reviewed and are unremarkable except as noted in HPI and below. Denies fever, chills, fatigue, headache, nasal congestion, sore throat, cough, chest pain, shortness of breath, palpitations, orthopnea, PND, abdominal pain, n/v/d, constipation, dysuria, hematuria, frequency, back pain, joint pain or swelling, easy bruising or bleeding, skin lesions or rashes. Physical Exam Physical Exam: GENERAL: 75 yo well-developed, well-nourished elderly WF. NAD. LUNGS: Clear to auscultation bilaterally. No accessory muscle use. No W/R/R. CARDIOVASCULAR: Regular rate and rhythm. No M/G/R. No JVD. ABDOMEN: Soft, non-tender and non-distended. BS normal x 4 quad. EXTREMITIES: No edema. Non-tender. Peripheral pulses +2/4. R knee dressed and wrapped. Hemovac visualized. Neg arun's sign. NEUROLOGIC: A&O x3. PSYCHIATRIC: Cooperative. Appropriate mood and affect. SKIN: Warm, dry, intact. No rashes or lesions. Results & Data Results & Data ([facility]) Vital Signs (Past 12 Hours) Vital Signs Temp Pulse Resp BP BP Pulse Ox 07/02/21 10:01 36.6 C 73 20 108/61 104/64 94 07/02/21 07:37 36.6 C 73 20 108/61 94 07/02/21 03:04 36.8 C 76 16 104/64 93 Laboratory Results 07/02/21 07:39 07/02/21 07:39 PG Care Time/CCT Total # of Minutes Spent Total Time Spent with Patient: Total time spent is greater than 50% in coordination of care (as documented) at patient's floor/unit and/or counseling patient: Coding Level of Care Code 08922 Office/OBS Consult Lvl 2 Diagnoses Aftercare following knee joint replacement surgery Z47.1; Z96.659 HTN (hypertension) I10 HLD (hyperlipidemia) E78.5 DM type 2 (diabetes mellitus, type 2) E11.9 Anxiety F41.9 Neuropathy G62.9
--- NOTE | 2021-07-05 18:33 | Discharge Summary ---
Date of Service July 05, 2021 Admission HPI Per Admitting Provider 75 year old female with PMHx significant for HTN, high cholesterol, DM2 who presents with longstanding right knee pain. She has pain interfering with her daily activities. She has failed conservative measures including injections, anti-inflammatories, therapy. She has previous left knee replacement and has done well. She would like to proceed with knee replacement. Patient denies headaches, sweats, fevers, chills, double vision, blurred vision, cough, sore throat, dysphagia, chest pain, sob, wheezing, n/v/d/c, numbness, tingling, fatigue, urinary symptoms, mood disorders. ROS positive for right knee pain and stiffness. Admission Exam Per Admitting Provider Constitutional: well developed and well nourished; no acute distress Eyes: PERRL, conjunctivae normal, anicteric sclerae ENMT: external ear and nose normal, oropharynx normal Neck: trachea midline, no thyromegaly Respiratory: normal respiratory effort, lungs clear to auscultation Cardiovascular: RRR, no murmur, no edema Musculoskeletal: Right knee: Tenderness medial joint line with mild effusion. Positive Calvin's. Stable to valgus and varus stress. ROM 10-90 degrees. Skin: no rashes, warm and dry Neurologic: patellar DTR's 2+ bilat, sensation intact Psychiatric: A+Ox3, euthymic affect Principal Diagnosis Right knee osteoarthritis Discharge Exam Dressings are clean, dry, and intact. Calves are soft and nontender. Neurovascular intact. Toes are mobile. She has good dorsiflexion and plantarflexion of the right foot. Hemovac drainage is minimal. Constitutional well developed and well nourished; no acute distress Discharge Data Allergies Allergy/AdvReac Type Severity Reaction Status Date / Time Penicillins Allergy Intermediate Hives Verified 07/01/21 05:29 Consultations 07/01/21 05:00 Consult Hospitalist Routine Procedures Performed Operation Date: 07/01/21 07:15 Actual Procedures p Right Total Knee Arthroplasty(Right) - Pradeep Wright MD Ordered Studies 07/01/21 07:43 US - OR guided needle placemen Routine Hospital Course (1) Primary osteoarthritis of right knee: Patient presented for same day admission following right total knee arthroplasty on 07/01/21. She tolerated procedure well. The Patient had an uneventful hospital course. Post-operatively, her activity was progressed and well tolerated. They participated in PT with ambulation distance of 80 feet. ROM of operative knee reached 68 degrees. Labs remained stable- lowest hemoglobin recorded: 10.7. Dr. Landry Barahona of medical service was consulted for medical management during admission. Pain controlled on oral medications. Please refer to daily progress notes and PT notes for complete details. After exam on 07/02/21, patient was felt to be stable for discharge home with HHPT. Patient will f/u in the office in about 2 weeks for further evaluation including x-rays and incision check, sooner if having any issues or concerns. Postop day 1 status post right TKA. PT/OT protocols. Weightbearing as tolerated. DVT prophylaxis-aspirin p.o. twice daily, SCDs, NIGHAT crabtree. Pain management as written. Labs pending DC planning-patient is planning for home health services upon discharge. Plan for discharge to home today pending review of laboratory values. Lab Results 07/01/21 07/01/21 07/01/21 Range/Units 05:33 09:45 11:51 WBC (4.8-10.8) K/uL RBC (4.2-5.4) M/uL Hgb (12.0-16.0) g/dL Hct (37-47) % MCV (80-100) fL MCH (25-34) pg MCHC (32-36) g/dL RDW Std Deviation (36.4-46.3) fL RDW Coeff of Diane (11.5-14.5) % Plt Count (130-400) K/uL MPV (7.4-10.4) fL Platelet Estimate (Normal) Sodium (136-145) mmol/L Potassium (3.5-5.1) mmol/L Chloride (98-107) mmol/L Carbon Dioxide (21-32) mmol/L Anion Gap (3-11) BUN (6-23) mg/dl Creatinine (0.6-1.2) mg/dl Est Cr Clr Drug Dosing ml/min Est GFR ( Amer) ml/min Est GFR (Non-Af Amer) ml/min BUN/Creatinine Ratio (10-20) Glucose (70-99(Fasting)) mg/dl POC Glucose 176 H 137 H 155 H (70-99) mg/dl Calcium (8.5-10.1) mg/dl Magnesium (1.7-2.4) mg/dl Total Bilirubin (0.2-1.0) mg/dl Direct Bilirubin (0-0.2) mg/dl AST (13-39) U/L ALT (7-52) U/L Alkaline Phosphatase (34-104) U/L Total Protein (6.0-8.3) gm/dl Albumin (3.4-5.0) gm/dl SARS-CoV-2, RNA, NAAT (NEGATIVE) 07/01/21 07/01/21 07/01/21 Range/Units 16:50 20:42 Unknown WBC (4.8-10.8) K/uL RBC (4.2-5.4) M/uL Hgb (12.0-16.0) g/dL Hct (37-47) % MCV (80-100) fL MCH (25-34) pg MCHC (32-36) g/dL RDW Std Deviation (36.4-46.3) fL RDW Coeff of Diane (11.5-14.5) % Plt Count (130-400) K/uL MPV (7.4-10.4) fL Platelet Estimate (Normal) Sodium (136-145) mmol/L Potassium (3.5-5.1) mmol/L Chloride (98-107) mmol/L Carbon Dioxide (21-32) mmol/L Anion Gap (3-11) BUN (6-23) mg/dl Creatinine (0.6-1.2) mg/dl Est Cr Clr Drug Dosing ml/min Est GFR ( Amer) ml/min Est GFR (Non-Af Amer) ml/min BUN/Creatinine Ratio (10-20) Glucose (70-99(Fasting)) mg/dl POC Glucose 103 H 140 H (70-99) mg/dl Calcium (8.5-10.1) mg/dl Magnesium (1.7-2.4) mg/dl Total Bilirubin (0.2-1.0) mg/dl Direct Bilirubin (0-0.2) mg/dl AST (13-39) U/L ALT (7-52) U/L Alkaline Phosphatase (34-104) U/L Total Protein (6.0-8.3) gm/dl Albumin (3.4-5.0) gm/dl SARS-CoV-2, RNA, NAAT NEGATIVE (NEGATIVE) 07/02/21 07/02/21 07/02/21 Range/Units 07:39 07:39 08:10 WBC 4.72 L (4.8-10.8) K/uL RBC 3.36 L (4.2-5.4) M/uL Hgb 10.7 L (12.0-16.0) g/dL Hct 32.7 L (37-47) % MCV 97.3 (80-100) fL MCH 31.8 (25-34) pg MCHC 32.7 (32-36) g/dL RDW Std Deviation 52.1 H (36.4-46.3) fL RDW Coeff of Daine 14.7 H (11.5-14.5) % Plt Count 128 L (130-400) K/uL MPV 12.3 H (7.4-10.4) fL Platelet Estimate Decreased L (Normal) Sodium 139 (136-145) mmol/L Potassium 3.6 (3.5-5.1) mmol/L Chloride 106 (98-107) mmol/L Carbon Dioxide 28 (21-32) mmol/L Anion Gap 5 (3-11) BUN 30 H (6-23) mg/dl Creatinine 0.86 (0.6-1.2) mg/dl Est Cr Clr Drug Dosing 64.7 ml/min Est GFR ( Amer) 77.1 ml/min Est GFR (Non-Af Amer) 66.6 ml/min BUN/Creatinine Ratio 34.9 H (10-20) Glucose 120 H (70-99(Fasting)) mg/dl POC Glucose 136 H (70-99) mg/dl Calcium 8.6 (8.5-10.1) mg/dl Magnesium 1.7 (1.7-2.4) mg/dl Total Bilirubin 0.8 (0.2-1.0) mg/dl Direct Bilirubin 0.2 (0-0.2) mg/dl AST 44 H (13-39) U/L ALT 26 (7-52) U/L Alkaline Phosphatase 40 (34-104) U/L Total Protein 5.4 L (6.0-8.3) gm/dl Albumin 3.4 (3.4-5.0) gm/dl SARS-CoV-2, RNA, NAAT (NEGATIVE) Total Time Total Time Spent Total Time Spent (In Minutes): 20 Discharge Plan Discharge Items Patient Disposition: Home - Home Health Services Reason For Visit: Right Knee Osteoarthritis Discharge Diagnosis: Right Knee Osteoarthritis Activity: Per Instructions section Weightbearing: Right weightbearing Non-emergency contact: Surgeon Call non-emergency contact if: your pain is not controlled, your temperature is above 101.5, your wound has increased redness and your wound has increased drainage Follow-up/Referrals: Cheryle Palmer CRNP [Primary Care Provider] - Pradeep Wright MD [Surgeon] - (Follow up in 14 days from the day of surgery for your first check up) Diet: Carb Consistent or DM2 Addtl Attending Provider Instructions: ACTIVITY RECOMMENDATIONS: SELF CARE INSTRUCTIONS AFTER TOTAL KNEE REPLACEMENT A. You may need to continue a physical therapy program after discharge from the hospital. There are several options available to you. Your doctor will assist you in selecting the best one for you. 1. An out-patient facility 2 to 3 times a week for therapy or home therapy. 2. Continue working on all exercises taught to you in the hospital. Your goals should be to increase bending of your knee to 90 degrees and beyond and to fully straighten your knee. B. You may progress at your own pace from walking with a walker or crutches to a cane; then to no assistive devices. C. Make walking a part of your daily routine. Be up as much as comfortable with rest periods throughout the day. Rest with leg elevation is very important. Use the ice wrap frequently for the first 3-4 weeks. D. There are no restrictions on activities. 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 E. Wear the long elastic stockings (NIGHAT hose) 20 hours a day for 2 weeks after surgery. They can be removed several times a day for laundering and for a bath. F. You may shower, no tub baths until cleared by your doctor. SPECIAL CARE INSTRUCTIONS: VERY IMPORTANT TO READ AND REVIEW A. There are a few signs you need to watch for after you are home. Call [facility] if you notice any of the followin. Increased severe knee pain. Some pain is expected especially when you exercise. 2. Increased swelling in your leg or knee; pain or swelling of the calf muscle in either lower leg. 3. Any fluid drainage from the incision. 4. Shortness of breath or chest pain. B. Please call [facility] at if you have any concerns or questions about your operation or recovery. The doctor or his nurse will return your call promptly. C. You must take antibiotics before dental work, bladder, bowel or other surgery. Your doctor will provide you with a permanent care to carry describing this precaution. IMPORTANT: * REMEMBER TO TAKE ASPIRIN, 81 MG, TWICE DAILY FOR 4 WEEKS UNLESS OTHERWISE DIRECTED. THIS IS YOUR BLOOD THINNER. * HIGH RISK PATIENTS MAY BE PRESCRIBED A STRONGER BLOOD THINNER. THIS WILL BE PROVIDED AT DISCHARGE. * CALL IF INCREASED PAIN, REDNESS, DRAINAGE OR FEVER GREATER THAT 101. * WEAR NIGHAT HOSE 20 HOURS PER DAY FOR 2 WEEKS. * YOU MAY HAVE A LARGE BAND-AID LIKE DRESSING (SILVERON). THIS WILL REMAIN ON YOUR INCISION FOR 7 DAYS, THEN CAN BE REMOVED. IF INCISION IS LEAKING THROUGH DRESSING, CALL THE OFFICE . FOLLOW UP VISIT: If appointment is not already scheduled: Please call [facility] to make a follow-up appointment for 2 weeks after your surgery at . Stand-Alone Forms: [facility], Opioid Pain Management, Smoking Cessation Medications and DC Order Prescriptions: New aspirin 81 mg Tablet,Delayed Release (Dr/Ec) 81 mg PO BID 30 Days Qty: 60 RF: 0 acetaminophen [Tylenol Extra Strength] 500 mg Tablet 1,000 mg PO Q8 14 Days Qty: 84 RF: 0 doxycycline hyclate 100 mg capsule 100 mg PO BID 7 Days Qty: 14 RF: 1 polyethylene glycol 3350 [Miralax] 17 gram powder in packet 17 g PO DAILY PRN (Reason: constipation) Qty: 5 RF: 0 oxycodone 5 mg Tablet 5 mg PO Q4H MDD 6 PRN (Reason: pain) Qty: 30 RF: 0 Continued cyanocobalamin (vitamin B-12) [Vitamin B-12] 100 mcg Tablet 100 mcg PO QAM RF: 0 lorazepam 0.5 mg Tablet 0.5 mg PO DAILY PRN (Reason: Anxiety) RF: 0 metformin 1,000 mg Tablet 1,000 mg PO BID RF: 0 gabapentin 100 mg Tablet 100 mg PO QPM RF: 0 Jardiance 10 mg Tablet 10 mg PO QAM RF: 0 albuterol sulfate 90 mcg/actuation Hfa Aerosol Inhaler 1 inh INHALATION Q4H PRN (Reason: sob) RF: 0 losartan 50 mg Tablet 50 mg PO QAM RF: 0 hydrochlorothiazide 50 mg Tablet 50 mg PO QAM RF: 0 diphenhydramine HCl [Benadryl] 25 mg Capsule 25 mg PO Q6H PRN (Reason: Allergy Symptoms) RF: 0 gabapentin 100 mg Tablet 300 mg PO HS RF: 0 gabapentin 100 mg Tablet 100 mg PO QAM RF: 0 fenofibrate 54 mg Tablet 54 mg PO QAM RF: 0 Discontinued acetaminophen [Tylenol] 325 mg Tablet 325 mg PO QID PRN (Reason: Pain) RF: 0 Discharge Orders: Discharge Order (Routine); Ordered 07/02/21 Ordered By: Kapil Zambrano/Other Patient Handouts: DVT Post Op Prevention Admission Data Admit Date/Time: 07/01/21 09:46 Attending Provider: Pradeep Wright Admit Provider: Pradeep Wright Primary Care Provider: Cheryle Palmer Other Providers: Patricio Treviño ; [facility] Other Interventions: Discharge Summary Assessment (RN) Last Done: 07/02/21 10:01
== END 2021-07-02 12:34 | disposition home health service (06) ==
LOC: ASU 05:12 → 3E 05:12

== ENCOUNTER 2022-08-19 08:48 | Inpatient (IN) ==
--- NOTE | 2022-07-28 14:05 | PAT Medication Instructions ---
Medication Instructions Date of Service July 28, 2022 Home Medications Medication Instructions Recorded polyethylene glycol 3350 17 gram 17 g PO DAILY PRN constipation #5 07/02/21 oral powder packet (Miralax) ea blood sugar diagnostic (Accu-Chek #100 ea 04/10/22 Guide test strips) fluticasone propionate 100 1 inh inhalation BID #60 ea 04/10/22 mcg/actuation blister powder for inhalation (Flovent Diskus) lancets (Accu-Chek Softclix #100 ea 04/10/22 Lancets) diclofenac sodium 1 % topical gel 2 g topical QID #100 grams 05/12/22 (Voltaren Arthritis Pain) Bacillus coagulans 800 million 1 cell PO DAILY #30 tabs 05/28/22 cell tablet (Digestive Advantage Probiotics-Prebiotic) clindamycin HCl 150 mg capsule 450 mg PO TID 7 days #63 caps 05/28/22 albuterol sulfate 90 mcg/actuation 1 inh inhalation Q4H PRN sob #8.5 06/05/22 aerosol inhaler grams fenofibrate 54 mg tablet 54 mg PO QAM #90 tabs 06/05/22 gabapentin 300 mg capsule 300 mg PO DAILY #90 caps 06/05/22 hydrochlorothiazide 50 mg tablet 50 mg PO QAM #90 tabs 06/05/22 lorazepam 0.5 mg tablet 0.5 mg PO BID PRN Anxiety #60 tabs 06/05/22 losartan 50 mg tablet 50 mg PO QAM #90 tabs 06/05/22 metformin 1,000 mg tablet 1,000 mg PO BID #180 tabs 06/05/22 cyanocobalamin (vitamin B-12) 100 mcg tablet (Vitamin B-12) 100 mcg PO QAM polyethylene glycol 3350 17 gram oral powder packet (Miralax) 17 g PO DAILY PRN fluticasone propionate 100 mcg/actuation blister powder for inhalation (Flovent Diskus) 1 inh inhalation BID diclofenac sodium 1 % topical gel (Voltaren Arthritis Pain) 2 g topical QID Bacillus coagulans 800 million cell tablet (Digestive Advantage Probiotics- Prebiotic) 1 cell PO DAILY clindamycin HCl 150 mg capsule 450 mg PO TID albuterol sulfate 90 mcg/actuation aerosol inhaler 1 inh inhalation Q4H PRN fenofibrate 54 mg tablet 54 mg PO QAM gabapentin 300 mg capsule 300 mg PO DAILY hydrochlorothiazide 50 mg tablet 50 mg PO QAM lorazepam 0.5 mg tablet 0.5 mg PO BID PRN losartan 50 mg tablet 50 mg PO QAM metformin 1,000 mg tablet 1,000 mg PO BID acetaminophen 500 mg tablet 500 mg PO QID PRN gabapentin 100 mg tablet 100 mg PO QAM Continue as directed gabapentin 300 mg capsule 300 mg PO DAILY ASK your surgeon for instructions diclofenac sodium 1 % topical gel (Voltaren Arthritis Pain) 2 g topical QID STOP taking 48 hours before surgery fenofibrate 54 mg tablet 54 mg PO QAM DO NOT take the morning of surgery cyanocobalamin (vitamin B-12) 100 mcg tablet (Vitamin B-12) 100 mcg PO QAM polyethylene glycol 3350 17 gram oral powder packet (Miralax) 17 g PO DAILY PRN Bacillus coagulans 800 million cell tablet (Digestive Advantage Probiotics- Prebiotic) 1 cell PO DAILY hydrochlorothiazide 50 mg tablet 50 mg PO QAM losartan 50 mg tablet 50 mg PO QAM metformin 1,000 mg tablet 1,000 mg PO BID Take morning of surgery With a small sip of water, OTHERWISE NOTHING TO EAT OR DRINK AFTER MIDNIGHT: fluticasone propionate 100 mcg/actuation blister powder for inhalation (Flovent Diskus) 1 inh inhalation BID clindamycin HCl 150 mg capsule 450 mg PO TID albuterol sulfate 90 mcg/actuation aerosol inhaler 1 inh inhalation Q4H PRN(use if needed; please bring with you to hospital day of surgery if possible) lorazepam 0.5 mg tablet 0.5 mg PO BID PRN(if needed) acetaminophen 500 mg tablet 500 mg PO QID PRN(if needed) gabapentin 100 mg tablet 100 mg PO QAM Take evening before surgery fluticasone propionate 100 mcg/actuation blister powder for inhalation (Flovent Diskus) 1 inh inhalation BID clindamycin HCl 150 mg capsule 450 mg PO TID albuterol sulfate 90 mcg/actuation aerosol inhaler 1 inh inhalation Q4H PRN(if needed) lorazepam 0.5 mg tablet 0.5 mg PO BID PRN(if needed) metformin 1,000 mg tablet 1,000 mg PO BID acetaminophen 500 mg tablet 500 mg PO QID PRN(if needed) Other Notes If you have any questions please call us at [phone] or [phone] or [phone] or [phone]
--- NOTE | 2022-08-05 13:15 | Anesthesiology Consultation ---
Date of Service August 05, 2022 Assessment & Plan (1) Encounter for pre-operative examination: Chart Review Chart Review: Acceptable Risk for Surgery (pending PCP clearance 08/06/22) and Patient seen in Pre Admission Testing - Awaiting PCP clearance 08/06/22 - Check BSG AM DOS Per PAT appt on 08/05/22, patient denies any recent travel or large group activities. Pt is NOT vaccinated for Covid. Will leave to surgeon's discretion if preop Covid testing needed. Educated on importance of using Covid precautions one week prior to surgery Right TKA 07/01/21= Done under SAB at L3-4 with two attempts Teaching & Discussion Pre-Anesthesia Teaching/Discussion Notes: Instructed NPO after midnight before surgery,except medications with 15 cc of water. Medication instructions provided according to the PAT guidelines. History Surgery Operation Date: 08/19/22 10:05 Proposed Procedures p L3-S1 Decompression and Fusion, Spinal Cord Monitoring - Gianni Diop, Height/Weight Height: 5 ft 6 in Weight: 98.7 kg Allergies Allergy/AdvReac Type Severity Reaction Status Date / Time Penicillins Allergy Intermediate Hives Verified 07/28/22 11:18 [id number] Reductase AdvReac Unknown muscle Verified 07/28/22 11:18 Inhibitor aches Medications Home Medications Medication Instructions Recorded Confirmed Last Taken cyanocobalamin (vitamin B-12) 100 100 mcg PO QAM 06/12/21 08/06/22 06/30/21 09:0 0 mcg tablet (Vitamin B-12) polyethylene glycol 3350 17 gram 17 g PO DAILY PRN constipation #5 07/02/21 08/06/22 Unknown oral powder packet (Miralax) ea blood sugar diagnostic (Accu-Chek #100 ea 04/10/22 08/06/22 Unknown Guide test strips) fluticasone propionate 100 1 inh inhalation BID #60 ea 04/10/22 08/06/22 Unknown mcg/actuation blister powder for inhalation (Flovent Diskus) lancets (Accu-Chek Softclix #100 ea 04/10/22 08/06/22 Unknown Lancets) diclofenac sodium 1 % topical gel 2 g topical QID #100 grams 05/12/22 08/06/22 Unknown (Voltaren Arthritis Pain) albuterol sulfate 90 mcg/actuation 1 inh inhalation Q4H PRN sob #8.5 06/05/22 08/06/22 Unknown aerosol inhaler grams fenofibrate 54 mg tablet 54 mg PO QAM #90 tabs 06/05/22 08/06/22 Unknown hydrochlorothiazide 50 mg tablet 50 mg PO QAM #90 tabs 06/05/22 08/06/22 Unknown lorazepam 0.5 mg tablet 0.5 mg PO BID PRN Anxiety #60 tabs 06/05/22 08/06/22 Unknown losartan 50 mg tablet 50 mg PO QAM #90 tabs 06/05/22 08/06/22 Unknown metformin 1,000 mg tablet 1,000 mg PO BID #180 tabs 06/05/22 08/06/22 Unknown acetaminophen 500 mg tablet 500 mg PO QID PRN Pain 07/28/22 08/06/22 Unknown gabapentin 100 mg tablet 100 mg PO QAM 07/28/22 08/06/22 Unknown gabapentin 300 mg capsule 300 mg PO HS 08/06/22 Unknown Past Medical History Medical History Anxiety Asthma environmental- rarely needs inhaler DM type 2 (diabetes mellitus, type 2) NIDDM Glucose controlled per patient History of cellulitis face, 05/28/22- treated with antibiotic x 14 days- no current issues History of kidney stones No recent issues HLD (hyperlipidemia) HTN (hypertension) Neuropathy Hands and feet Obesity Sciatica To left side Urinary incontinence Exercise / Class Metabolic Activity III < 4 Walking/Shop/Light housework (one flight of stairs - no chest pain, mild SOB ) Past Family History Family History Sister PONV (postoperative nausea and vomiting) Lung disease Mother Diabetes Father Heart disease Brother Diabetes Anxiety Past Surgical History Surgical History History of bilateral breast reduction surgery History of cholecystectomy History of D&C History of left knee replacement Left TKA (04/10/17): SAB at L4-L5 + PNB at [facility]. No issues per anesthesia progress note. History of right knee joint replacement 06/2021 [facility] Past Anesthesia History No Hx of Anesthesia Complications and No Family Hx of Anesthesia Complications History of PONV No Hx of PONV and Hx of Motion Sickness Social History Smoking Status: Never smoker Do You Dip or Chew Tobacco: No Hx Alcohol Use: Yes alcohol intake frequency: holidays/special occasions only Hx Substance Use: No substance use type: does not use Review of Systems Snoring unknown Patient denies chest pain, shortness of breath, dyspnea on exertion, reflux, cough, wheezing, palpitations. No hx of seizures, stroke, [place]. No hx of blood clots or blood transfusions Physical Exam Vital Signs VITALS BP 118/75 P 77 TEMP 98.0 SP02 96% RESP 16 Constitutional no acute distress ENMT Mouth: no TMJ clicking Thyromental Distance: > or= 3.5 Finger Breadths (3.5) Mallampati Class: III Missing molars/side teeth Neck + limited neck extension (minimal ) Respiratory normal respiratory effort; no respiratory distress Auscultation: lungs clear to auscultation bilaterally; no wheezes Cardiovascular Rate/Rhythm: regular rate and regular rhythm Heart Sounds: no murmur Vessels: no carotid bruit Musculoskeletal Spine: no pain with cervical ROM Extremities: extremities normal to inspection Psychiatric Orientation: alert Lab Results Anesthesia Preop Results Results Anesthesia Widget: WBC 4.22 K/ul (4.8-10.8) L 08/05/22 Hgb 12.3 g/dl (12.0-16.0) 08/05/22 Hct 37.8 % (37.0-47.0) 08/05/22 Plt 140 K/uL (130-400) 08/05/22 Na 141 mmol/L (136-145) 08/05/22 K 3.8 mmol/L (3.5-5.1) 08/05/22 Cl 105 mmol/L (98-107) 08/05/22 CO2 30 mmol/L (21-32) 08/05/22 BUN 23 mg/dl (6-23) 08/05/22 Creat 0.60 mg/dl (0.6-1.2) 08/05/22 Glucose Level 107 mg/dl (70-99(Fasting)) H 08/05/22 PT 11.6 Seconds (9.0-12.0) 08/05/22 PTT 30.0 Seconds (21.0-31.0) 08/05/22 INR 1.1 (0.9-1.1) 08/05/22 HA1c 6.6 % (4.5-5.6) H 08/05/22 Urine Color Dark Yellow 08/05/22 Urine Appearance Clear (Clear) 08/05/22 Urine pH 5.0 (4.5-7.5) 08/05/22 Urine Specific [place] 1.034 (1.000-1.030) H 08/05/22 Urine Protein Negative (Negative) 08/05/22 Urine Glucose (UA) 1+ (Negative) H 08/05/22 Urine Ketones Negative (Negative) 08/05/22 Urine Blood Negative (Negative) 08/05/22 Urine Nitrite Negative (Negative) 08/05/22 Urine Bilirubin Negative (Negative) 08/05/22 Urine Urobilinogen Negative (Negative) 08/05/22 Urine Leukocyte Esterase Negative (Negative) 08/05/22 Blood Type A Positive 08/05/22 Antibody Screen NEGATIVE 08/05/22 Testing Electrocardiogram Date: 08/05/22 Findings: + NSR @ (73bpm ) Normal EKG per cardio Chest X-Ray Date: 08/05/22 Findings: + NAD FINDINGS: Lung volumes are normal. No pneumothorax or pleural effusion is present. Mild cardiomegaly is unchanged. There is no evidence for pulmonary edema. Linear bilateral densities are similar to prior exam and favor scarring. No consolidation is identified to suggest pneumonia. There has been no change in appearance of the chest. IMPRESSION: No acute cardiopulmonary findings. No change in appearance of the chest. COVID-19 Risk Screen Screening Information COVID-19 Screen Date: 08/05/22 Exposure 21 Days Family/Household +COVID Last 21 Days: No Exposure 10 Days Any COVID Exposure Last 10 Days: No Symptoms Last 10 Days Experienced COVID Sx Last 10 Days: No + COVID 0-90 Days COVID + in Last 0-90 Days: No Risk Plan COVID Risk Plan: No Risk Identified Patient Education COVID Preop Screening Education Complete: Yes
[~2022-08-19 08:48] MED LIST changes: +ACETAMINOPHEN 500 MG TAB PO SCH; +CLINDAMYCIN/D5W 900 MG/50 ML BAG IV SCH; +CeleBREX 200 MG CAP PO SCH; -FENO54TA PO; +GABAPENTIN 300 MG CAP PO SCH; -GLC/500 PO; -HYDR12.55 PO; -IBUP-103 PO; -LOSA50TA6 PO; +LR 15ML/HR IV SCH; -OMEG10007 PO; -VNTHFA/IN INH; -[UNRECOGNIZED DRUG - REMARK] SCH
[2022-08-19] MEDS ORDERED: ROCURONIUM BROMIDE 10 MG/ML 5 ML VIAL IV ONE (08:57)
[2022-08-19] MEDS ORDERED: LIDOCAINE 2% 2 ML VIAL/AMP(20MG/ML) INFIL ONE (08:57)
[2022-08-19] MEDS ORDERED: PROPOFOL IV EMULSION 10 MG/ML 20 ML VIAL IV ONE (08:57)
[2022-08-19] MEDS ORDERED: MIDAZOLAM HCL 1 MG/ML 2ML VIAL ONE (08:57)
[2022-08-19] MEDS ORDERED: ONDANSETRON INJ 2 MG/ML 2 ML VIAL ONE (08:57)
[2022-08-19] MEDS ORDERED: DEXAMETHASONE SOD INJ 4 MG/ML VIAL ONE (08:57)
[2022-08-19] MEDS ORDERED: fentaNYL citrate PF 100 MCG/2 ML VIAL ONE (08:57)
[2022-08-19] MEDS ORDERED: SUGAMMADEX SODIUM 200 MG/2 ML VIAL IV ONE (08:58)
[2022-08-19] MEDS ORDERED: ATROPINE SULFATE 0.1 MG/ML 10ML SYR IV PRN (09:59)
[2022-08-19] MEDS ORDERED: ePHEDrine sulfate 50 MG/ML AMP IV PRN (09:59)
[2022-08-19] MEDS ORDERED: ONDANSETRON INJ 2 MG/ML 2 ML VIAL IV PRN ×2 (09:59→16:11)
--- NOTE | 2022-08-19 11:11 | History & Physical Bridge Note ---
Date of Service August 19, 2022 History & Physical Bridge Note I have examined the patient, reviewed the History & Physical and in the interval since the performance of the History & Physical I have noted the following changes of clinical significance: no changes noted
--- NOTE | 2022-08-19 11:13 | History & Physical Report ---
Date of Service August 19, 2022 Assessment & Plan (1) Neurogenic claudication due to lumbar spinal stenosis: Plan: L3-S1 decompression and fusion History of Present Illness Chief Complaint: Back and leg pain Primary Care Provider: Cheri Dyer DO This is a 76-year-old female presents with chronic persistent back and leg pain after failing since course of nonoperative care she is here for surgical invention. Allergies Allergy/AdvReac Type Severity Reaction Status Date / Time Penicillins Allergy Intermediate Hives Verified 08/19/22 09:32 Vqaenzt-XRT-[id number] Reductase AdvReac Unknown muscle Verified 08/19/22 09:32 Inhibitor aches Home Medications Medication Instructions Recorded Confirmed Type cyanocobalamin (vitamin B-12) 100 100 mcg PO QAM 06/12/21 08/19/22 History mcg tablet (Vitamin B-12) polyethylene glycol 3350 17 gram 17 g PO DAILY PRN constipation #5 07/02/21 08/19/22 Rx oral powder packet (Miralax) ea blood sugar diagnostic (Accu-Chek #100 ea 04/10/22 08/06/22 Rx Guide test strips) fluticasone propionate 100 1 inh inhalation BID #60 ea 04/10/22 08/19/22 Rx mcg/actuation blister powder for inhalation (Flovent Diskus) lancets (Accu-Chek Softclix #100 ea 04/10/22 08/06/22 Rx Lancets) diclofenac sodium 1 % topical gel 2 g topical QID #100 grams 05/12/22 08/19/22 Rx (Voltaren Arthritis Pain) albuterol sulfate 90 mcg/actuation 1 inh inhalation Q4H PRN sob #8.5 06/05/22 08/19/22 Rx aerosol inhaler grams fenofibrate 54 mg tablet 54 mg PO QAM #90 tabs 06/05/22 08/19/22 Rx hydrochlorothiazide 50 mg tablet 50 mg PO QAM #90 tabs 06/05/22 08/19/22 Rx lorazepam 0.5 mg tablet 0.5 mg PO BID PRN Anxiety #60 tabs 06/05/22 08/19/22 Rx losartan 50 mg tablet 50 mg PO QAM #90 tabs 06/05/22 08/19/22 Rx metformin 1,000 mg tablet 1,000 mg PO BID #180 tabs 06/05/22 08/19/22 Rx acetaminophen 500 mg tablet 500 mg PO QID PRN Pain 07/28/22 08/19/22 History gabapentin 100 mg tablet 100 mg PO QAM 07/28/22 08/19/22 History gabapentin 300 mg capsule 300 mg PO HS 08/06/22 08/19/22 History Past Med/Surg History Medical History Anxiety Asthma environmental- rarely needs inhaler DM type 2 (diabetes mellitus, type 2) NIDDM Glucose controlled per patient History of cellulitis face, 05/28/22- treated with antibiotic x 14 days- no current issues History of kidney stones No recent issues HLD (hyperlipidemia) HTN (hypertension) Neuropathy Hands and feet Obesity Sciatica To left side Urinary incontinence Surgical History History of bilateral breast reduction surgery History of cholecystectomy History of D&C History of left knee replacement Left TKA (04/10/17): SAB at L4-L5 + PNB at [facility]. No issues per anesthesia progress note. History of right knee joint replacement 06/2021 [facility] Family History Sister PONV (postoperative nausea and vomiting) Lung disease Mother Diabetes Father Heart disease Brother Diabetes Anxiety Social History Smoking Status: Never smoker Second Hand Exposure: No; Do You Dip or Chew Tobacco: No; Tobacco Cessation Education Requested by Patient: No Hx Alcohol Use: Yes Alcohol Intake Frequency: Monthly or Less Hx Substance Use: No Preferred Language: French Communication Ability: Effective Rough Rice Tender Required: No Beliefs That Will Affect Care: None marital status: / Current Living Situation: Alone 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
[2022-08-19] MEDS ORDERED: ceFAZolin 330 MG/ML 1 GM VIAL ONE (11:55)
[2022-08-19] MEDS ORDERED: BUPIVACAINE/EPINEPHRINE 0.25% 1:200,000 30 ML VIAL ONE (11:55)
[2022-08-19] MEDS ORDERED: FLOSEAL HEMOSTATIC MATRIX 10ML TOP ONE (12:51)
[2022-08-19] MEDS ORDERED: SURGICEL ABSORB HEMOSTAT 2IN X 14IN TOP ONE (13:47)
--- NOTE | 2022-08-19 14:13 | Operative Report ---
Post Operative Report Pre & Post Diagnosis Operation Date: 08/19/22 10:35 Pre-Op Diagnosis: Neurogenic claudication due to lumbar spinal stenosis Spondylolisthesis L5-S1 Post-Op Diagnosis: same I identified the patient and participated in the time-out.: Yes Procedure Operation Date: 08/19/22 10:35 Actual Procedures 1. Lumbar decompression with bilateral medial facetectomies and foraminotomies L3-L4, L4-5 and L5-S1. #2 posterior spinal fusion L4-S1. #3 placed posterior instrumentation L4-S1. #4 interbody fusion L4-L5 L5-S1. #5 history of Spira 12 x 26 mm cage at L4-5 and 9 x 26 mm cage at L5-S1. #6 placement locally harvested morselized autograft in the posterior gutters. #7 placement of I factor, and of the test interbody space and posterior gutters. Surgeon Gianni Diop, DO Airborne And Air Delivery Specialist Patrice Romo Estimated Blood Loss 250 Findings See Below The patient is 5 foot 5 weighing over 98 kg with a BMI in excess of 36. Patient's body habitus did contribute to significant technical difficulty required deepest retractors and longer instruments in order to perform her procedure. This is at least 50% increased operative time. Specimens none Indications This is a 76-year-old female presents above-mentioned diagnosis after failing course of nonoperative care is here for surgical invention. Description of Procedure Patient was met with identified informed consent obtained. Patient was then taken to the operative suite underwent ablation placed in a prone position on the Carter table top Chris frame. All bony promises well-padded eyes inspected to ensure no external pressure placed upon the. This point the lumbar spine was prepped and draped in a sterile fashion. Sharp dissection with assistance of Bovie cautery to form down to and exposing the lamina and transverse processes of L for L5 and the sacral ala bilaterally. Obvious bilateral pars defect was noted at L5. A complete laminectomy L5 L4 and partial laminectomy of L3 was performed including bilateral medial facetectomies and foraminotomies addressing severe spinal stenosis. Pedicle screws were then placed in L4-L5 and S1 levels bilaterally with assistance of fluoroscopy and the properly sized yvonne placed. By way of a trans foraminal approach on the left knee discectomy L5-S1 was performed endplates curetted to subcortical bleeding bone and a 9 x 26 mm Spira cage filled with I factor tapped in position. Then proceeded to L4-L5 again by way of transforaminal approach and left complete discectomy performed endplates curetted to subcortically bone and a 12 x 26 mm Spira cage with I factor tapped in position. The rods then locked in final position bilaterally. The transverse processes of L for L5 and sacral ala burred to subcortically bone. I factor amount of the test and locally harvested morselized autograft was placed in the posterior gutters. 15 round BRANDIE drain inserted. The incision was then closed with 1 Vicryl to fascia 2-0 Vicryl subcutaneously and 4 Monocryl for final skin closure. Steri-Strips sterile dressings placed. Patient awakened taken to PACU in stable condition. Please note spinal cord monitoring was utilized at the procedure no changes noted. Lastly Patrice Romo was present at the entire surgeon while the patient positioning complex portion of the surgery and final skin closure. I attest to the content of the Intraoperative Record and any orders documented therein. Any exceptions are noted below.
--- NOTE | 2022-08-19 14:38 | Fluoroscopy Report ---
FL lumbar spine 2-3V CLINICAL HISTORY: L3-S1 DFIchronic low back pain COMPARISON STUDY: None FLUOROSCOPY TIME: 36.2 seconds FLUOROSCOPY IMAGES: 2 EXPOSURE DOSE: 36.13 mGy FINDINGS: Posterior interbody rods and screw fusion hardware is noted about L4-S1 with discectomy. An terolisthesis of L5 on S1. No acute fracture. The hardware appears intact. No unexpected opaque forei gn bodies. Note that the images were submitted following completion of the surgery. IMPRESSION: Fluoroscopic assistance as above. ACT 112: Negative or not required by law. Electronically signed by: Antonio Acosta M.D. 08/19/2022 2:36 PM
[2022-08-19] MEDS: fentaNYL citrate PF 100 MCG/2 ML VIAL IV PRN ×2 (14:40→14:45)
--- NOTE | 2022-08-19 15:11 | Anesthesiology Progress Note ---
Date of Service August 19, 2022 Anesthesia Post Procedure Vital Signs Vital Signs: Temp Pulse Pulse Resp BP Pulse Ox O2 Del Method 08/19/22 15:05 98.8 F 84 14 158/77 H 98 Nasal Cannula 08/19/22 14:55 87 16 137/69 90 Room Air 08/19/22 14:45 88 12 141/79 H 100 Oxymask 08/19/22 14:35 98.6 F 102 H 11 L 177/96 H 99 Oxymask 08/19/22 09:35 98.1 F 71 21 143/95 H 98 Room Air O2 Flow Rate 08/19/22 15:05 2 08/19/22 14:55 08/19/22 14:45 10 08/19/22 14:35 10 08/19/22 09:35 Pain Intensity Bilateral Lower Back: Pain Intensity: 5 Back: Pain Intensity: 9 Transfer of Care Handoff Completed per policy Notes Mental Status: alert / awake / arousable and participated in evaluation Patient Amnestic to Procedure: Yes Nausea / Vomiting: adequately controlled Pain: adequately controlled Airway Patency, RR, SpO2: stable & adequate BP & HR: stable & adequate Hydration State: stable & adequate Anesthetic Complications: no major complications apparent and Pt Satisfied with anesthetic care
[2022-08-19] MEDS ORDERED: HYDROmorphone INJ 1 MG/ML SYRINGE IV PRN (16:11)
[2022-08-19] MEDS ORDERED: PROMETHAZINE HCL 12.5 MG in SODIUM CHLORIDE 0.9% 50 ML IV PRN (16:11)
[2022-08-19] MEDS ORDERED: FAMOTIDINE 20 MG TAB PO PRN (16:11)
[2022-08-19] MEDS ORDERED: PHARMACY GLYCEMIC MGMT CONSULT PRN (16:11)
[2022-08-19] MEDS ORDERED: ACETAMINOPHEN 1,000 MG/100 ML VIAL IV PRN (16:11)
[2022-08-19] MEDS ORDERED: LORazepam 0.5 MG TAB PO PRN (16:11)
[2022-08-19] MEDS ORDERED: DO NOT ADMINISTER PNEUMOCOCCAL VACCINE PRN (16:11)
[2022-08-19] MEDS ORDERED: SOD PHOSPHATE/SOD BIPHOSPHATE ENEMA 132 ML BTL PR PRN (16:11)
[2022-08-19] MEDS ORDERED: HYDROmorphone INJ 0.5 MG/0.5 ML SYR IV PRN (16:11)
[2022-08-19] MEDS ORDERED: diphenhydrAMINE Capsule 25 MG CAP PO PRN (16:11)
[2022-08-19] MEDS ORDERED: LORazepam 2 MG/1 ML VIAL IV PRN (16:11)
[2022-08-19] MEDS ORDERED: ALUMINUM/MAGNESIUM SUSP 30 ML UDC PO PRN (16:11)
[2022-08-19] MEDS ORDERED: ONDANSETRON 4 MG OD TAB PO PRN (16:11)
[2022-08-19] MEDS ORDERED: NALOXONE HCL 0.4 MG/1 ML VIAL/CARP IV PRN (16:11)
[2022-08-19] MEDS ORDERED: traMADol HCL 50 MG TABLET PO PRN (16:11)
[2022-08-19] MEDS ORDERED: METOCLOPRAMIDE HCL INJ 5 MG/ML 2 ML VIAL IV PRN (16:11)
[2022-08-19] MEDS ORDERED: bisacodyL 10 MG SUPP PR PRN (16:11)
[2022-08-19] MEDS ORDERED: hydrOXYzine HCl 25 MG TAB PO PRN (16:11)
[2022-08-19] MEDS ORDERED: DO NOT ADMINISTER FLU VACCINE PRN (16:11)
[2022-08-19] MEDS ORDERED: DEXTROSE 50% 50 ML SYRINGE IV PRN (16:30)
[2022-08-19] MEDS ORDERED: GLUCOSE 40% GEL 15 GM TUBE PO PRN (16:30)
[2022-08-19] MEDS ORDERED: CARBOHYDRATES FOR HYPOGLYCEMIA PO PRN (16:30)
[2022-08-19] MEDS ORDERED: GLUCOSE 10 TAB/TUBE PO PRN (16:30)
[2022-08-19] MEDS ORDERED: GLUCAGON FOR INJ 1 MG VIAL IM PRN (16:30)
[2022-08-19] MEDS: SODIUM CHLORIDE 0.9% 1000ML 1,000 ML IV SCH ×2 (16:57→23:23)
[2022-08-19] MEDS: oxyCODONE HCL IR 5 MG TAB (IMMEDIATE RELEASE) PO PRN ×2 (17:00→23:21)
[2022-08-19] MEDS: INSULIN ASPART PER UNIT CHARGE SC SCH ×3 (17:22→23:27)
--- NOTE | 2022-08-19 17:23 | Hospitalist Consultation ---
Date of Consultation August 19, 2022 Assessment & Plan (1) Neurogenic claudication due to lumbar spinal stenosis: s/p 1. Lumbar decompression with bilateral medial facetectomies and foraminotomies L3-L4, L4-5 and L5-S1. #2 posterior spinal fusion L4-S1. #3 placed posterior instrumentation L4-S1. #4 interbody fusion L4-L5 L5-S1. #5 history of Spira 12 x 26 mm cage at L4-5 and 9 x 26 mm cage at L5-S1. #6 placement locally harvested morselized autograft in the posterior gutters. #7 placement of I factor, and of the test interbody space and posterior gutters. EBL 250cc Pain management/bowel regimen/PT/OT per primary service DVT prophylaxis: SCDs, ioana hose, chemoproph contraindicated in back surgery Monitor labs in AM Patient planning on being inpatient and dc on Thursday per prior discussion with Dr Diop but will see how she progresses (2) HTN (hypertension): Placing HCTZ 50mg/losartan 50mg daily on hold post-op, BP 115/66 Eval renal function/BP in AM, resume if able (3) HLD (hyperlipidemia): chronic, stable continue fenofibrate (4) DM type 2 (diabetes mellitus, type 2): chronic, stable. most recent A1c 6.6 On metformin 1gm BID Holding home meds while inpatient BSG AC/HS, SSI Monitor BSGs (5) Asthma: environmental induced stable on room air albuterol HFA available prn no sob/wheezing on exam Plan Thank you for allowing hospitalist service to participate in the care of Ms Mason. Hospitalist service will follow along. Supervising Physician Co-Signing Physician Notes I personally saw and examined the patient. I verified all cervantes points and agree with More Newton PA-C with the following exceptions and/or additions: 76 year old female POD#0 lumbar spinal decompression. EBL 250ml. Already significant improvement in radicular symptoms in her left leg. O/E HS RRR, no murmurs, Chest CTAB, Abdo SNT A/P No change to plan above, agree with temporally hold her BP meds while BP remains low normal. History of Present Illness Reason for Consultation: med management Requesting Physician: Dr Diop Attending Physician: Gianni Diop, DO History of Present Illness 76yo female with PMHx significant for HTN, HLD, DM II (NIDDM), asthma, obesity, anxiety present for L3-S1 decompression and fusion with Dr Diop today. EBL 250cc. Evaluated in room 317. Reports pain well controlled, eating liquid diet at present without issue. No chest pain/shortness of breath, abdominal pain. Had some nausea post-op which has improved since eating. Prior issues w/ constipation after knee surgery and discussed Dr Diop has aggressive bowel regimen in place. No lightheaded/dizziness. Inquiring when barajas catheter to be removed -- discussed in AM. Anticipating discharge on Thursday per her discussion w/ Dr Diop previously but hasn't seen him since surgery. Missing her dog, staying with her 91yo sister currently. Other sister at bedside who she plans on going home with when stable. Questions/concerns addressed at this time. Allergies Allergy/AdvReac Type Severity Reaction Status Date / Time Penicillins Allergy Intermediate Hives Verified 08/19/22 09:32 Rkebnwk-CYX-QsP Reductase AdvReac Unknown muscle Verified 08/19/22 09:32 Inhibitor aches Home Medications Medication Instructions Recorded Confirmed Type cyanocobalamin (vitamin B-12) 100 100 mcg PO QAM 06/12/21 08/19/22 History mcg tablet (Vitamin B-12) polyethylene glycol 3350 17 gram 17 g PO DAILY PRN constipation #5 07/02/21 08/19/22 Rx oral powder packet (Miralax) ea blood sugar diagnostic (Accu-Chek #100 ea 04/10/22 08/06/22 Rx Guide test strips) fluticasone propionate 100 1 inh inhalation BID #60 ea 04/10/22 08/19/22 Rx mcg/actuation blister powder for inhalation (Flovent Diskus) lancets (Accu-Chek Softclix #100 ea 04/10/22 08/06/22 Rx Lancets) diclofenac sodium 1 % topical gel 2 g topical QID #100 grams 05/12/22 08/19/22 Rx (Voltaren Arthritis Pain) albuterol sulfate 90 mcg/actuation 1 inh inhalation Q4H PRN sob #8.5 06/05/22 08/19/22 Rx aerosol inhaler grams fenofibrate 54 mg tablet 54 mg PO QAM #90 tabs 06/05/22 08/19/22 Rx hydrochlorothiazide 50 mg tablet 50 mg PO QAM #90 tabs 06/05/22 08/19/22 Rx lorazepam 0.5 mg tablet 0.5 mg PO BID PRN Anxiety #60 tabs 06/05/22 08/19/22 Rx losartan 50 mg tablet 50 mg PO QAM #90 tabs 06/05/22 08/19/22 Rx metformin 1,000 mg tablet 1,000 mg PO BID #180 tabs 06/05/22 08/19/22 Rx acetaminophen 500 mg tablet 500 mg PO QID PRN Pain 07/28/22 08/19/22 History gabapentin 100 mg tablet 100 mg PO QAM 07/28/22 08/19/22 History gabapentin 300 mg capsule 300 mg PO HS 08/06/22 08/19/22 History Patient History Medical History Anxiety Asthma environmental- rarely needs inhaler DM type 2 (diabetes mellitus, type 2) NIDDM Glucose controlled per patient History of cellulitis face, 05/28/22- treated with antibiotic x 14 days- no current issues History of kidney stones No recent issues HLD (hyperlipidemia) HTN (hypertension) Neuropathy Hands and feet Obesity Sciatica To left side Urinary incontinence Surgical History History of bilateral breast reduction surgery History of cholecystectomy History of D&C History of left knee replacement Left TKA (04/10/17): SAB at L4-L5 + PNB at [facility]. No issues per anesthesia progress note. History of right knee joint replacement 06/2021 [facility] Family History Sister PONV (postoperative nausea and vomiting) Lung disease Mother Diabetes Father Heart disease Brother Diabetes Anxiety Social History Smoking Status: Never smoker Second Hand Exposure: No; Do You Dip or Chew Tobacco: No; Tobacco Cessation Education Requested by Patient: No Hx Alcohol Use: Yes Alcohol Intake Frequency: Monthly or Less Hx Substance Use: No Preferred Language: Filipino Communication Ability: Effective Grounds Worker Required: No Beliefs That Will Affect Care: None marital status: / Current Living Situation: Alone 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 have: 2 Other Information That Helps Us Care for You: No Feels Safe at Home: Yes Safety Concerns: Feels Safe At This Time Do you think of yourself as: straight/heterosexual Gender Identity: Female Assistive Devices: Cane, Glasses and Walker Assistive Devices Comment: HAS A CANE AND WALKER, NOT CURRENLTY USING Review of Systems Review of Systems: All systems reviewed & are unremarkable except as noted in HPI & below Physical Exam Physical Exam: General: WD/WN obese female sitting up in bed eating dinner, NAD HEENT: head normocephalic, atraumatic, mmm, trachea midline Resp; CTA bilaterally, no w/c/r, on room air CV: RRR, no significant m/r/g, no pitting edema/calf tenderness, , pulses palpabale GI: +BS, soft/NT : barajas in place MSK/Neuro: dressing c/d/i, BRANDIE drain in place, dorsiflexion/plantar flexion, sensation intact, toes mobile.no focal deficit Psych: AOx3, cooperative with exam Results & Data Results & Data Vital Signs (Past 12 Hours) Vital Signs Temp Pulse Pulse Resp BP Pulse Ox O2 Del Method 08/19/22 16:40 36.6 C 81 18 115/66 96 Room Air 08/19/22 16:10 36.4 C L 82 20 126/70 96 Room Air 08/19/22 15:39 36.5 C 83 16 135/70 94 Room Air 08/19/22 15:05 37.1 C 84 14 158/77 H 98 Nasal Cannula 08/19/22 15:20 84 18 136/69 97 Nasal Cannula 08/19/22 14:55 87 16 137/69 90 Room Air 08/19/22 14:45 88 12 141/79 H 100 Oxymask 08/19/22 14:35 37.0 C 102 H 11 L 177/96 H 99 Oxymask 08/19/22 09:35 36.7 C 71 21 143/95 H 98 Room Air O2 Flow Rate 08/19/22 16:40 08/19/22 16:10 08/19/22 15:39 08/19/22 15:05 2 08/19/22 15:20 2 08/19/22 14:55 08/19/22 14:45 10 08/19/22 14:35 10 08/19/22 09:35 Laboratory Results 08/19/22 08/19/22 08/19/22 Range/Units 16:36 14:37 09:47 POC Glucose 147 H 130 H 139 H (70-99) mg/dl SARS-CoV-2, RNA, NAAT (NEGATIVE) Blood Type Antibody Screen Crossmatch 08/19/22 08/19/22 Range/Units 09:18 05:00 POC Glucose (70-99) mg/dl SARS-CoV-2, RNA, NAAT NEGATIVE (NEGATIVE) Blood Type A Positive Antibody Screen NEGATIVE Crossmatch See Detail Diagnostic Findings Lumbar Spine X-Ray 08/19/22 10:35 FL lumbar spine 2-3V CLINICAL HISTORY: L3-S1 DFIchronic low back pain COMPARISON STUDY: None FLUOROSCOPY TIME: 36.2 seconds FLUOROSCOPY IMAGES: 2 EXPOSURE DOSE: 36.13 mGy FINDINGS: Posterior interbody rods and screw fusion hardware is noted about L4- S1 with discectomy. Anterolisthesis of L5 on S1. No acute fracture. The hardware appears intact. No unexpected opaque foreign bodies. Note that the images were submitted following completion of the surgery. IMPRESSION: Fluoroscopic assistance as above. ACT 112: Negative or not required by law. Electronically signed by: Antonio Acosta M.D. 08/19/2022 2:36 PM PG Care Time/CCT Total # of Minutes Spent Total Time Spent with Patient: Total time spent is greater than 50% in coordination of care (as documented) at patient's floor/unit and/or counseling patient: Coding Level of Care Code 34503 IN/OBS CONSULT LVL 3,45M Diagnoses Neurogenic claudication due to lumbar spinal stenosis M48.062 HTN (hypertension) I10 HLD (hyperlipidemia) E78.5 DM type 2 (diabetes mellitus, type 2) E11.9 Asthma J45.909
[2022-08-19] MEDS ORDERED: LANTUS PER UNIT CHARGE SC SCH (21:00)
[2022-08-19] MEDS: DOCUSATE SODIUM/SENNA 50/8.6MG TAB PO SCH (21:16)
[2022-08-19] MEDS: GABAPENTIN 300 MG CAP PO SCH (21:16)
[2022-08-19] MEDS: CLINDAMYCIN/D5W 600 MG/50 ML BAG IV SCH (21:16)
[2022-08-20] MEDS: CLINDAMYCIN/D5W 600 MG/50 ML BAG IV SCH (03:50)
[2022-08-20] MEDS: INSULIN ASPART PER UNIT CHARGE SC SCH ×5 (03:53→21:20)
[2022-08-20] MEDS: POLYETHYLENE (MIRALAX) 17 GM PACK PO SCH ×4 (05:35→23:25)
[2022-08-20] MEDS: SODIUM CHLORIDE 0.9% 1000ML 1,000 ML IV SCH (05:51)
[2022-08-20 07:54] LABS: Basophils # (auto) 0.05 K/uL (0-0.2); Basophils % (auto) 0.5 %; Eosinophils # (auto) 0.04 K/uL (0-0.50); Eosinophils % (auto) 0.4 %; Hematocrit (blood only) 30.5 % (37.0-47.0); Immature Granulocytes # (auto) 0.06 K/uL (0.01-0.20); Immature Granulocytes % (auto) 0.6 %; Lymphocytes # (auto) 0.61 K/uL (1.2-3.4); Lymphocytes % (auto) 6.4 %; Mean Corpuscular Hemoglobin 29.8 pg (25.0-34.0); Mean Corpuscular Hgb Conc 32.8 g/dL (32.0-36.0); Mean Corpuscular Volume 90.8 fL (80.0-100.0); Mean Platelet Volume 12.4 fL (9.4-12.4); Monocytes # (auto) 0.86 K/uL (0.11-0.59); Neutrophils # (auto) 7.96 K/uL (1.40-6.50); Neutrophils % (auto) 83.1 %; Platelet Count 147 K/uL (130-400); RDW Coefficient of Variation 14.6 % (11.5-14.5); RDW Standard Deviation 48.4 fL (36.4-46.3); Red Blood Count 3.36 M/uL (4.20-5.40); White Blood Count 9.58 K/ul (4.8-10.8)
[2022-08-20 08:10] LABS: BUN Creatinine Ratio 35.6 (10-20); Calcium 8.8 mg/dl (8.6-10.3); Est GFR (African American) 75.5 ml/min; Est GFR (Non-African American) 65.2 ml/min; Potassium 3.6 mmol/L (3.5-5.1)
[2022-08-20] MEDS: dexAMETHasone 6 MG in SYRINGE 0 ML IV SCH (08:35)
[2022-08-20] MEDS: FENOFIBRATE NANOCRYSTALLIZED 48 MG TABLET PO SCH (08:36)
[2022-08-20] MEDS: CYANOCOBALAMIN (B-12) 100 MCG TABLET PO SCH (08:36)
[2022-08-20] MEDS: GABAPENTIN 100 MG CAP PO SCH (08:36)
[2022-08-20] MEDS: FLUTICASONE FUROATE 200MCG 14 PUFFS/INHALER INH SCH (08:37)
[2022-08-20] MEDS: ACETAMINOPHEN 500 MG TAB PO PRN ×2 (08:44→21:19)
[2022-08-20] MEDS ORDERED: LOSARTAN POTASSIUM 50 MG TAB PO SCH (09:00)
[2022-08-20] MEDS ORDERED: hydroCHLOROthiazide 25 MG TAB PO SCH (09:00)
[2022-08-20] MEDS: LANTUS PER UNIT CHARGE SC SCH (09:50)
--- NOTE | 2022-08-20 12:44 | Pharmacy Report ---
Pharmacy Glycemic Short Note 2 - Date of Service August 20, 2022 - Glycemic Short BSG Results (Last 24 hours): 08/19/22 08/19/22 08/19/22 14:37 16:36 20:23 Glucose POC Glucose 130 H 147 H 244 H 08/19/22 08/20/22 08/20/22 23:20 03:47 07:18 Glucose 121 H POC Glucose 170 H 135 H 08/20/22 08/20/22 08:03 11:51 Glucose POC Glucose 131 H 186 H OUTPATIENT ANTIDIABETIC REGIMEN: * Metformin 1gm PO BID * HbA1c: 6.6% (08/05/22) ASSESSMENT: * Ms Mason is a 76yo diabetic F, POD #1 s/p spinal procedure w/ Dr Diop yesterday. * Pt received 8mg IV dexamethasone intra-operatively yesterday and is ordered 6mg IV DXM x3 days post-op. This is expected to lead to steroid-induced hyperglycemia. * Pt was initiated on SQ basal/bolus insulin on admission. * Anticipate that patient's insulin requirements will decrease when steroids are stopped. PLAN FOR INPATIENT GLYCEMIC CONTROL: * Hold outpatient oral diabetes medications * Basal insulin * Lantus 20 units SQ daily, while pt is receiving IV DXM * Bolus insulin * NovoLog per scale ACHS or Q6hrs while NPO * Goal Range: Low 110 mg/dL - High 140 mg/dL * Correction Factor: 15 mg/dL/unit * Nutritional / Prandial insulin per carb ratio of 1 unit per 5 grams CHO consumed
--- NOTE | 2022-08-20 12:53 | Orthopedic Progress Note ---
Date of Service August 20, 2022 Assessment & Plan (1) Neurogenic claudication due to lumbar spinal stenosis: Plan: This time we will continue physical therapy monitor her BRANDIE output anticipate discharge home in the next few days. Admission and Anticipated Discharge Date Admission Date: August 19, 2022 Subjective Back pain controlled leg pain markedly improved Physical Exam Physical Exam: Patient is in the chair at the bedside. She is comfortable. Is actually strength testing. Results & Data Vital Signs (Past 12 Hours) Vital Signs Temp Pulse Pulse Resp BP Pulse Ox O2 Del Method 08/20/22 07:42 36.8 C 72 18 102/63 96 Room Air 08/20/22 05:34 79 111/70 08/20/22 05:33 76 98/50 L 08/20/22 05:20 78 16 94/50 L 94 Room Air 08/20/22 02:48 36.9 C 87 16 93/52 L 94 Room Air
[2022-08-20] MEDS: oxyCODONE HCL IR 5 MG TAB (IMMEDIATE RELEASE) PO PRN (14:43)
--- NOTE | 2022-08-20 15:07 | Hospitalist Progress Note ---
Date of Service August 20, 2022 Assessment & Plan (1) Neurogenic claudication due to lumbar spinal stenosis: Plan: Chronic s/p 1. Lumbar decompression with bilateral medial facetectomies and foraminotomies L3-L4, L4-5 and L5-S1. #2 posterior spinal fusion L4-S1. #3 placed posterior instrumentation L4-S1. #4 interbody fusion L4-L5 L5-S1. #5 history of Spira 12 x 26 mm cage at L4-5 and 9 x 26 mm cage at L5-S1. #6 placement locally harvested morselized autograft in the posterior gutters. #7 placement of I factor, and of the test interbody space and posterior gutters. EBL 250cc Pain management/bowel regimen/PT/OT per primary service DVT prophylaxis: SCDs, ioana crabtree encourage OOB with assistance and walker Patient states radicular leg pain has resolved and she anticipates being d/c hoe Thursday (2) HTN (hypertension): Plan: Chronic Resumed Losartan and HCTZ today Eval renal function/BP in AM (3) HLD (hyperlipidemia): Plan: Chronic and stable Continue fenofibrate (4) DM type 2 (diabetes mellitus, type 2): Plan: Chronic and stable most recent A1c 6.6 On metformin 1gm BID Holding home meds while inpatient BSG AC/HS, SSI Monitor BSGs (5) Asthma: Plan: Chronic and stable environmental induced stable on room air albuterol HFA available prn no sob/wheezing on exam 96% on RA Plan Thank you for allowing hospitalist service to participate in the care of Ms Mason. Hospitalist service will sign off, please reconsult or call if needed Admission and Anticipated Discharge Date Admission Date: August 19, 2022 Subjective Patient seen this afternoon in rounds. She states she was up in the recliner and went for a walk and now is resting in bed. She states her pain seems controlled. She has not passed flatus or any BM but states she thinks she will move her bowels shortly. She denies any CP, dyspnea of SOB. Review of Systems Review of Systems: All ROS negative except some fatigue and back discomfort. Physical Exam Constitutional: WD/WN, vitals as above Neck: trachea midline, no thyromegaly Respiratory: normal respiratory effort, lungs clear to auscultation Cardiovascular: RRR, no murmur, no edema Extremities: normal capillary refill; no calf tenderness and no edema Gastrointestinal (Abdomen): normal bowel sounds, soft, nontender, no hepatosplenomegaly Psychiatric: A+Ox3, euthymic affect Results & Data Results & Data Vital Signs (Past 12 Hours) Vital Signs Temp Pulse Pulse Resp BP Pulse Ox O2 Del Method 08/20/22 07:42 36.8 C 72 18 102/63 96 Room Air 08/20/22 05:34 79 111/70 08/20/22 05:33 76 98/50 L 08/20/22 05:20 78 16 94/50 L 94 Room Air Laboratory Results Abnormal lab results 08/19/22 08/19/22 08/19/22 Range/Units 16:36 20:23 23:20 RBC (4.20-5.40) M/uL Hgb (12.0-16.0) g/dl Hct (37.0-47.0) % RDW Std Deviation (36.4-46.3) fL RDW Coeff of Diane (11.5-14.5) % Neut # (Auto) (1.40-6.50) K/uL Lymph # (Auto) (1.2-3.4) K/uL [place] # (Auto) (0.11-0.59) K/uL BUN (6-23) mg/dl BUN/Creatinine Ratio (10-20) Glucose (70-99(Fasting)) mg/dl POC Glucose 147 H 244 H 170 H (70-99) mg/dl 08/20/22 08/20/22 08/20/22 Range/Units 03:47 07:18 07:18 RBC 3.36 L (4.20-5.40) M/uL Hgb 10.0 L (12.0-16.0) g/dl Hct 30.5 L (37.0-47.0) % RDW Std Deviation 48.4 H (36.4-46.3) fL RDW Coeff of Diane 14.6 H (11.5-14.5) % Neut # (Auto) 7.96 H (1.40-6.50) K/uL Lymph # (Auto) 0.61 L (1.2-3.4) K/uL [place] # (Auto) 0.86 H (0.11-0.59) K/uL BUN 31 H (6-23) mg/dl BUN/Creatinine Ratio 35.6 H (10-20) Glucose 121 H (70-99(Fasting)) mg/dl POC Glucose 135 H (70-99) mg/dl 08/20/22 08/20/22 Range/Units 08:03 11:51 RBC (4.20-5.40) M/uL Hgb (12.0-16.0) g/dl Hct (37.0-47.0) % RDW Std Deviation (36.4-46.3) fL RDW Coeff of Diane (11.5-14.5) % Neut # (Auto) (1.40-6.50) K/uL Lymph # (Auto) (1.2-3.4) K/uL [place] # (Auto) (0.11-0.59) K/uL BUN (6-23) mg/dl BUN/Creatinine Ratio (10-20) Glucose (70-99(Fasting)) mg/dl POC Glucose 131 H 186 H (70-99) mg/dl PG Care Time/CCT Total # of Minutes Spent Total Time Spent with Patient: Total time spent is greater than 50% in coordination of care (as documented) at patient's floor/unit and/or counseling patient: Coding Level of Care Code 56757 SUB INP/OBS CARE 04/09MIN Diagnoses Neurogenic claudication due to lumbar spinal stenosis M48.062 HTN (hypertension) I10 HLD (hyperlipidemia) E78.5 DM type 2 (diabetes mellitus, type 2) E11.9 Asthma J45.909
[2022-08-20] MEDS: DOCUSATE SODIUM/SENNA 50/8.6MG TAB PO SCH (21:16)
[2022-08-20] MEDS: GABAPENTIN 300 MG CAP PO SCH (21:16)
[2022-08-21] MEDS: POLYETHYLENE (MIRALAX) 17 GM PACK PO SCH ×4 (05:56→22:49)
[2022-08-21 07:20] LABS: Hematocrit (blood only) 27.5 % (37.0-47.0); Hemoglobin 9.1 g/dl (12.0-16.0); Mean Corpuscular Hgb Conc 33.1 g/dL (32.0-36.0); Mean Corpuscular Volume 93.5 fL (80.0-100.0); Platelet Count 118 K/uL (130-400); RDW Coefficient of Variation 14.9 % (11.5-14.5); Red Blood Count 2.94 M/uL (4.20-5.40); White Blood Count 8.36 K/ul (4.8-10.8)
--- NOTE | 2022-08-21 08:17 | Orthopedic Progress Note ---
Date of Service August 21, 2022 Assessment & Plan (1) Neurogenic claudication due to lumbar spinal stenosis: Plan: This time we will continue physical therapy monitor her BRANDIE output anticipate discharge home tomorrow. Admission and Anticipated Discharge Date Admission Date: August 19, 2022 Subjective Back pain controlled leg pain markedly improved Physical Exam Physical Exam: Patient is in the chair at the bedside. Is constricted testing. Appears c omfortable. Results & Data Vital Signs (Past 12 Hours) Vital Signs Temp Pulse Resp BP Pulse Ox O2 Del Method 08/21/22 07:33 36.7 C 59 L 18 110/66 97 Room Air 08/20/22 21:00 36.8 C 60 18 105/63 95 Room Air
[2022-08-21] MEDS: FENOFIBRATE NANOCRYSTALLIZED 48 MG TABLET PO SCH (09:27)
[2022-08-21] MEDS: CYANOCOBALAMIN (B-12) 100 MCG TABLET PO SCH (09:28)
[2022-08-21] MEDS: GABAPENTIN 100 MG CAP PO SCH (09:28)
[2022-08-21] MEDS: LANTUS PER UNIT CHARGE SC SCH (09:29)
[2022-08-21] MEDS: dexAMETHasone 6 MG in SYRINGE 0 ML IV SCH (09:29)
[2022-08-21] MEDS: INSULIN ASPART PER UNIT CHARGE SC SCH ×4 (09:31→21:02)
[2022-08-21] MEDS: FLUTICASONE FUROATE 200MCG 14 PUFFS/INHALER INH SCH (09:34)
[2022-08-21] MEDS: ACETAMINOPHEN 500 MG TAB PO PRN ×2 (09:35→21:02)
[2022-08-21 11:22] LABS: Calcium 8.7 mg/dl (8.6-10.3); Potassium 3.9 mmol/L (3.5-5.1)
[2022-08-21 11:28] LABS: BUN Creatinine Ratio 52.7 (10-20); Creatinine Clr Calc Pharmacy 62.1 ml/min; Est GFR (African American) 71.5 ml/min; Est GFR (Non-African American) 61.7 ml/min
[2022-08-21] MEDS: MAGNESIUM HYDROXIDE SUSP 30 ML UDC PO PRN (18:02)
[2022-08-21] MEDS: GABAPENTIN 300 MG CAP PO SCH (20:57)
[2022-08-21] MEDS: DOCUSATE SODIUM/SENNA 50/8.6MG TAB PO SCH (20:57)
[2022-08-22] MEDS: POLYETHYLENE (MIRALAX) 17 GM PACK PO SCH (05:32)
[2022-08-22] MEDS: CYANOCOBALAMIN (B-12) 100 MCG TABLET PO SCH (08:37)
[2022-08-22] MEDS: GABAPENTIN 100 MG CAP PO SCH (08:37)
[2022-08-22] MEDS: dexAMETHasone 6 MG in SYRINGE 0 ML IV SCH (08:37)
[2022-08-22] MEDS: FENOFIBRATE NANOCRYSTALLIZED 48 MG TABLET PO SCH (08:37)
[2022-08-22] MEDS: FLUTICASONE FUROATE 200MCG 14 PUFFS/INHALER INH SCH (08:37)
[2022-08-22] MEDS: INSULIN ASPART PER UNIT CHARGE SC SCH (08:38)
[2022-08-22] MEDS: LANTUS PER UNIT CHARGE SC SCH (08:39)
[2022-08-22] MEDS: MAGNESIUM HYDROXIDE SUSP 30 ML UDC PO PRN (08:44)
--- NOTE | 2022-08-22 09:15 | Pharmacy Report ---
Pharmacy Glycemic Short Note 2 - Date of Service August 22, 2022 - Glycemic Short BSG Results (Last 24 hours): 08/21/22 08/21/22 08/21/22 06:38 12:11 17:00 Glucose 129 H POC Glucose 165 H 198 H 08/21/22 08/22/22 20:54 08:00 Glucose POC Glucose 181 H 137 H OUTPATIENT ANTIDIABETIC REGIMEN: * Metformin 1gm PO BID * HbA1c: 6.6% (08/05/22) ASSESSMENT: 08/22/22 * Blood sugars well controlled, day 3/3 of IV Dexamethasone, DC Lantus after today's dose. May need to loosen CF/CR tomorrow as steroids effects decrease. * Anticipate DC tomorrow. 08/20/22 * Ms Mason is a 76yo diabetic F, POD #1 s/p spinal procedure w/ Dr Diop yesterday. * Pt received 8mg IV dexamethasone intra-operatively yesterday and is ordered 6mg IV DXM x3 days post-op. This is expected to lead to steroid-induced hyperglycemia. * Pt was initiated on SQ basal/bolus insulin on admission. * Anticipate that patient's insulin requirements will decrease when steroids are stopped. PLAN FOR INPATIENT GLYCEMIC CONTROL: * Hold outpatient oral diabetes medications * Basal insulin * Lantus 20 units SQ daily, while pt is receiving IV DXM, last dose today * Bolus insulin * NovoLog per scale ACHS or Q6hrs while NPO * Goal Range: Low 110 mg/dL - High 140 mg/dL * Correction Factor: 15 mg/dL/unit * Nutritional / Prandial insulin per carb ratio of 1 unit per 5 grams CHO consumed
--- NOTE | 2022-08-22 09:33 | Discharge Summary ---
Date of Service August 22, 2022 Admission HPI Per Admitting Provider This is a 76-year-old female presents with chronic persistent back and leg pain after failing since course of nonoperative care she is here for surgical invention. Discharge Data Consultations 08/19/22 16:11 Consult Hospitalist Routine Procedures Performed Operation Date: 08/19/22 10:35 Actual Procedures p L3-S1 Decompression and Fusion, Spinal Cord Monitoring(Not Applicable) - Gianni Diop, Hospital Course (1) Neurogenic claudication due to lumbar spinal stenosis: Patient is a pleasant 76-year-old female history physical examination radiographic images consistent with the above diagnosis. For this reason she was brought to the operating room on 08/19/2022 and undergone lumbar decompression and fusion from L3-S1. This was performed by Dr. Diop under general anesthesi a. She notes the operating room the BRANDIE drain and [place] in place since transfer to the orthopedic floor in stable condition she was seen by physical therapy postop day 1 for ambulation and gait training. She was placed on GI DVT prophylaxis and pain control. Throughout her hospital course her calves remain supple and nontender abdomen supple nontender and on postoperative day #3 she was deemed safe for home discharge. Her discharge instructions or for any full bending at the waist or lift anything heavier than 5 to 7 pounds. She is to change her dressing once daily till there is no drainage once there is no drainage she may shower. She should avoid driving until her 2-week follow-up. She is to follow-up with the office approximately 2 weeks or sooner if develops any increased pain drainage from incision fevers or chills.
== END 2022-08-22 10:37 | disposition home or self-care (01) | DRG 455 ==
LOC: ASU 08:48 → 3E 14:16